=== PATIENT | female | born 1950 | race Caucasian/White ===

== ENCOUNTER → 2017-09-10 07:47 | Outpatient (CLI) | payer MEDICARE, OTHER, SELFPAY ==
--- NOTE | 2017-09-10 | DI.MG.S_ITS ---
BILATERAL DIGITAL SCREENING MAMMOGRAM 3D/2D WITH CAD: 09/10/2017 CLINICAL: Routine screening. Family history of breast cancer. Comparison is made to exams dated: 08/25/2016 mammogram, 07/04/2015 mammogram, and 03/12/2014 mammogram - [facility]. The tissue of both breasts is heterogeneously dense. This may lower the sensitivity of mammography. Current study was also evaluated with a Computer Aided Detection (CAD) system. No significant masses, calcifications, or other findings are seen in either breast. There has been no significant interval change. IMPRESSION: NEGATIVE There is no mammographic evidence of malignancy. A 1 year screening mammogram is recommended. This exam was interpreted at Station ID: [id number]. NOTE: For mammograms, a report in lay terms will be sent to the patient. Approximately 15% of breast malignancies will not be visualized mammographically. In the management of a palpable breast mass, a negative mammogram must not discourage biopsy of a clinically suspicious lesion. Electronically Signed By: Ana Maria escobedo/britta:09/13/2017 09:33:08 letter sent: Normal Exam ACR BI-RADS Category 1: Negative [id number]
== END ==
PROVIDERS: Visit Provider Nurse Practitioner Family
DX: Z12.31 Encounter for screening mammogram for malignant neoplasm of breast (principal); Z80.3 Family history of malignant neoplasm of breast
CPT/HCPCS: 77063; 77067

== ENCOUNTER → 2018-04-24 09:40 | Outpatient (CLI) | payer MEDICARE, OTHER, SELFPAY ==
--- NOTE | 2018-04-24 | DI.RAD.S_ITS ---
This blank DEXA report has been sent in error by the PACS system. The correct and complete report will be forthcoming in 1-2 days. Thank you for your patience and understanding. Dictated by: Monty Ramos M.D. on 04/24/2018 at 12:22 Approved by: Monty Ramos M.D. on 04/24/2018 at 12:23
== END ==
PROVIDERS: Visit Provider Internal Medicine
DX: M85.88 Other specified disorders of bone density and structure, other site (principal); Z78.0 Asymptomatic menopausal state; E07.9 Disorder of thyroid, unspecified
CPT/HCPCS: 77080

== ENCOUNTER 2018-04-26 11:59 | Day surgery (SDC) | payer MEDICARE, OTHER, SELFPAY ==
--- NOTE | 2018-04-26 | PATH_ITS ---
[facility] Accession Number: [id number] . 01 Material submitted: . GE JUNCTION . 01 Clinical history: . A: BARRETTS ESOPHAGUS BIOPSY GE JUNCTION . 02 Diagnosis: Gastroesophageal Junction, Biopsy: Squamocolumnar junctional mucosa with specialized intestinal metaplasia, consistent with Keating's esophagus. Negative for dysplasia and malignancy. MRV/04/28/2018 . 02 Electronically signed: . Bianca Fernandez MD, Pathologist NPI- [id number] . 01 Gross description: . GE JUNCTION: Received in formalin are multiple fragment(s) of oliveira, soft tissue measuring 0.5 x 0.2 x 0.2 cm in aggregate submitted entirely in 1 cassette(s) /CKI /CKI . 02 Pathologist provided ICD-10: K22.70 . 02 CPT . 791979 Performed at: 01 [facility] [address], [place], [place] [id number] MD Victor Hugo Rodriguez MD Phone: [phone] Performed at: 02 [facility] [address] [place], [place] [id number] MD Bianca Fernandez MD Phone: [phone]
[2018-04-26 13:22] VITALS: BP 128/83; PULSE 73; RESP 16; TEMP 36.2; O2SAT 95; BMI 29.0
[2018-04-26] MEDS: SODIUM CHLORIDE 0.9% 1,000 ML 100 ML IV ×2 (13:35→16:45)
[2018-04-26 15:37] VITALS: BP 131/89; PULSE 71; RESP 16; O2SAT 131
--- NOTE | 2018-04-26 16:31 | PM.HP.1 ---
History of Present Illness Date Patient Seen: 04/26/18 Time Patient Seen: 16:30 Chief complaint: 39571 EGD W/DX K22.7 Narrative: history GERD and Keating's esophagus Patient History Medical History Snoring (Chronic) Insomnia, persistent (Chronic) Hypersomnia (Chronic) Obstructive sleep apnea of adult (Chronic) Family & Social History Social History: household members none Tobacco & Substance use: Smoking Status Never smoker Meds Home Medications Medication Instructions Recorded Confirmed Type AMINOBENZOIC ACID/BIOTIN/CA (#B 1 cap PO PRN #0 06/25/11 12/01/17 History COMPLEX) Calcium Carbonate/Vitamin D 1 cap PO PRN #0 06/25/11 12/01/17 History (#CALCIUM) MULTIVITAMIN (#MULTIPLE VITAMINS) 1 cap PO PRN #0 06/25/11 12/01/17 History OMEPRAZOLE 20 mg PO QDAY #0 06/25/11 04/26/18 History [VITAMIN C] 500 mg PO PRN #0 06/25/11 12/01/17 History [VITAMIN D] 2,000 iu PO QDAY #0 06/25/11 12/01/17 History thyroid (pork) [[place] Thyroid] 60 mg PO DAILY 04/26/18 04/26/18 History Allergies Allergy/AdvReac Type Severity Reaction Status Date / Time No Known Drug Allergies Allergy Unverified 12/01/17 13:42 Review of Systems Review of Systems All systems reviewed & are unremarkable except as noted in HPI and below Exam Vital Signs (past 8 hours): - 04/26/18 13:22 Temperature 97.1 F L Pulse Rate 73 Respiratory Rate 16 Blood Pressure 128/83 Pulse Oximetry 95 Oxygen Delivery Method Room Air Narrative Exam Narrative: gen aaox3, and heent anicteric cv rrr, no murmurs pulm ctab abd s, nt, nd, nabs ext 2+ pulses, no edema Assessment & Plan Plan: Assessment/Plan Narrative: GERD, Keating's esophagus EGD
[2018-04-26] MEDS: MIDAZOLAM 5 MG/5 ML VIAL IV (16:46)
[2018-04-26] MEDS: fentaNYL 250 MCG/5 ML INJ IV (16:47)
[2018-04-26 16:55] VITALS: BP 123/78; PULSE 80; RESP 13; TEMP 36.2
[2018-04-26 17:02] VITALS: BP 130/81; PULSE 83; RESP 13; O2SAT 94
--- NOTE | 2018-04-26 17:02 | P.OP.ENDO_ITS ---
Operative Date/Time/Diagnoses Date of procedure: 04/26/18 Time of procedure: 16:38 Procedure & Clinicians Study performed: EGD with biopsy Same procedure as scheduled: Yes Indications: History of Keating's esophagus, GERD Surgeon: Ilan Mejia Procedure Notes Procedure in detail: Sedation: 5 mg Versed, 150 mcg fentanyl Prior to the procedure, a history and physical was performed, and patient medications and allergies were reviewed. Preprocedure nursing history and assessment was reviewed. Patient identification and proposed procedure were verified by the physician and nurse in the procedure room. The physical status of the patient was reassessed after the procedure. After informed consent was obtained including the risks, benefits, and alternatives, the scope was passed under direct vision. Throughout the procedure, the patient's blood pressure, pulse, and oxygen saturation were monitored continuously. The upper endoscope was introduced through the mouth and advanced to the 2nd portion of the duodenum. Retroflexion was performed in the stomach. The patient tolerated the procedure well Esophagus: Four columns of salmon colored mucosa extending up to 2 cm above the gastroesophageal junction were noted, consistent with a history of Keating's esophagus graded as C0M2 based on [place] classification. This was biopsied and placed into a single specimen jar. Top of intestinal metaplasia located at 34 cm from the incisors. Top of gastric folds located at 36 cm from the incisors. Stomach: A 4 cm hiatal hernia was noted. Crural pinch located at 40 cm The stomach was otherwise normal appearing Duodenum: The examined portion of the duodenum was normal appearing Sedation minutes: 11 Findings: Keating's esophagus and hiatal hernia Complications: other (Complications none. Estimated blood loss minimal) Plan for aftercare: Follow-up pathology results Repeat EGD at a date to be determined based on pathology results Resume home medications Follow anti-reflux diet and lifestyle Discharged home with escort
[2018-04-26 17:06] VITALS: BP 130/84; PULSE 88; RESP 14; TEMP 36.2; O2SAT 96
== END 2018-04-26 17:25 | disposition home or self-care (01) ==
PROVIDERS: Visit Provider Internal Medicine
PROC: 0DJ08ZZ Inspection of Upper Intestinal Tract, Via Natural or Artificial Opening Endoscopic (ICD-10-PCS; CPT 43235; principal; 2018-04-26 16:00)
DX: K22.70 Barrett's esophagus without dysplasia (principal); K21.9 Gastro-esophageal reflux disease without esophagitis; K44.9 Diaphragmatic hernia without obstruction or gangrene; G47.33 Obstructive sleep apnea (adult) (pediatric)
CPT/HCPCS: 43239; 88305; J2250; J3010

== ENCOUNTER → 2018-08-17 07:44 | Outpatient (CLI) | payer MEDICARE, OTHER, SELFPAY ==
--- NOTE | 2018-08-17 | DI.US.S_ITS ---
PROCEDURE: US THYROID INDICATIONS: NONTOXIC SINGLE THYROID NODULE TECHNIQUE: Real-time scanning was performed of the thyroid gland, with image documentation. COMPARISON: [facility], US, THYROID, 06/24/2014, 8:36. FINDINGS: Right: Thyroid lobe measures 5.4 x 1.7 x 1.7 cm, and is homogeneous in echotexture. Left: Thyroid lobe measures 5.0 1.4 x 1.6 cm, and is homogenous in echotexture. Isthmus: 4 mm thick. Nodule number: 1 Location: Right upper pole Size: 1.4 x 0.8 x 1.1 cm. Composition: Predominant solid Echogenicity: Hypoechoic Shape: wider than tall. Margins: Smooth Echogenic foci: None Total points: 4 ACR TI-RADS category: 4 Nodule number: 2 Location: Right lower pole Size: 1.0 x 0.6 x 1.0 cm. Composition: Predominantly solid Echogenicity: Isoechoic Shape: wider than tall. Margins: Smooth Echogenic foci: None Total points: 3 ACR TI-RADS category: 3 Nodule number: 3 Location: Left upper pole Size: 0.6 x 0.4 x 0.6 cm. Composition: Predominantly solid Echogenicity: Isoechoic Shape: wider than tall. Margins: Smooth Echogenic foci: None Total points: 3 ACR TI-RADS category: 3 Nodule number: 4 Location: Left lower pole Size: 1.1 x 0.8 x 0.7 cm. Composition: Solid Echogenicity: Isoechoic Shape: wider than tall. Margins: Lobulated Echogenic foci: None Total points: 5 ACR TI-RADS category: 4 IMPRESSION: Multiple thyroid nodules which warrant continued followup with ultrasound surveillance in 12 months per consensus recommendations. ACR TI-RADS definitions and recommendations: TI-RADS 1 (benign): 0 points. FNA not needed. TI-RADS 2 (not suspicious): 2 points. FNA not needed. TI-RADS 3 (mildly suspicious): 3 points. * FNA if 2.5 cm or larger, follow up if 1.5 cm or larger (at 1, 3, and 5 years). TI-RADS 4 (moderately suspicious): 4-6 points. * FNA if 1.5 cm or larger, follow up if 1 cm or larger (at 1, 2, 3, and 5 years). TI-RADS 5 (highly suspicious): 7 points or more. * FNA if 1 cm or larger, follow up if 0.5 cm or larger (every year for 5 years). * Dictated by: Miguel Angel Ramirez M.D. on 08/17/2018 at 9:17 Approved by: Miguel Angel Ramirez M.D. on 08/17/2018 at 9:44
[2018-08-17 10:10] LABS: Free T4, Direct Thyroxine 1.01 ng/dL (0.78-2.19)
[2018-08-17 10:23] LABS: Thyroid Stimulating Hormone 1.53 uIU/mL (0.47-4.68)
[2018-08-18 16:42] LABS: Triiodothyronine T3 Total 83 ng/dL (76-181)
== END ==
PROVIDERS: PCP Internal Medicine; Visit Provider Internal Medicine
DX: E04.2 Nontoxic multinodular goiter (principal); E03.9 Hypothyroidism, unspecified
CPT/HCPCS: 36415; 76536; 84439; 84443; 84480

== ENCOUNTER → 2018-10-10 07:59 | Outpatient (CLI) | payer MEDICARE, OTHER, SELFPAY ==
[2018-10-10 08:42] LABS: Add Manual Diff / Slide Review NO; Basophils Absolute Auto 0 /uL (0-100); Basophils Percent Auto 0.9 % (0-2); Eosinophils Absolute Auto 200 /uL (0-450); Hematocrit 40.9 % (36-46); Hemoglobin 13.5 g/dL (12.0-16.0); Lymphocytes Absolute Auto 1700 /uL (1100-4500); Lymphocytes Percent Auto 33.4 % (25-40); Mean Corpuscular Hemoglobin 29.4 PG (26-34); Mean Corpuscular Volume 89.1 fL (80-100); Monocytes Absolute Auto 500 /uL (0-900); Monocytes Percent Auto 10.1 % (3-14); Neutrophils Absolute Auto 2700 /uL (1500-7000); Neutrophils Percent Auto 52.6 % (50-75); Platelet Count 337 X10^3/uL (150-400); Red Blood Cell Count 4.59 X10^6/uL (4.0-5.2); Red Cell Distribution Width 14.3 % (11.6-14.8); White Blood Cell Count 5.1 X10^3/uL (4.5-11.0)
[2018-10-10 08:56] LABS: Alanine Aminotransferase 13 IU/L (9-52); Albumin 4.2 g/dL (3.5-5.0); Albumin Globulin Ratio 1.4 (1.0-2.8); Alkaline Phosphatase 66 U/L (38-126); Aspartate Aminotransferase 22 IU/L (14-36); BUN Creatinine Ratio 25.6 (6-22); Bilirubin Total 0.9 mg/dL (0.2-1.3); Blood Urea Nitrogen 23 mg/dL (7-17); Calcium 9.4 mg/dL (8.4-10.2); Carbon Dioxide 27 mmol/L (22-32); Chloride 106 mmol/L (98-107); Cholesterol 208 mg/dL (140-199); Estimated Glomerular Filt Rate > 60.0 mL/min (>60); Globulin 2.9 g/dL (1.7-4.1); Glucose 89 mg/dL (80-110); HDL Cholesterol 91 mg/dL (40-60); HEMOLYSIS < 15 (0-50); LDL Cholesterol Calculated 106 mg/dL (<100); Magnesium 1.9 mg/dL (1.6-2.3); Potassium 4.3 mmol/L (3.4-5.1); Sodium 141 mmol/L (137-145); Total Protein 7.1 g/dL (6.3-8.2); Triglycerides 56 mg/dL (35-150)
[2018-10-10 09:41] LABS: Vitamin D 25 Hydroxy (D3) 39.4 ng/mL (30.0-100.0)
== END ==
PROVIDERS: PCP Internal Medicine; Visit Provider Internal Medicine
DX: M89.9 Disorder of bone, unspecified (principal); Z13.220 Encounter for screening for lipoid disorders
CPT/HCPCS: 36415; 80053; 80061; 82306; 83735; 85025

== ENCOUNTER → 2018-10-14 08:54 | Outpatient (CLI) | payer MEDICARE, OTHER, SELFPAY ==
--- NOTE | 2018-10-14 | DI.MG.S_ITS ---
BILATERAL DIGITAL SCREENING MAMMOGRAM 3D/2D WITH CAD: 10/14/2018 CLINICAL: Routine screening. Family history of breast cancer. Comparison is made to exams dated: 09/10/2017 mammogram, 08/25/2016 mammogram, and 07/04/2015 mammogram - [facility]. The tissue of both breasts is heterogeneously dense. This may lower the sensitivity of mammography. Current study was also evaluated with a Computer Aided Detection (CAD) system. No significant masses, calcifications, or other findings are seen in either breast. There has been no significant interval change. IMPRESSION: NEGATIVE There is no mammographic evidence of malignancy. A 1 year screening mammogram is recommended. This exam was interpreted at Station ID: [id number]. NOTE: For mammograms, a report in lay terms will be sent to the patient. Approximately 15% of breast malignancies will not be visualized mammographically. In the management of a palpable breast mass, a negative mammogram must not discourage biopsy of a clinically suspicious lesion. Electronically Signed By: Victor Hugo velasquez/britta:10/16/2018 10:33:39 letter sent: Normal Exam ACR BI-RADS Category 1: Negative [id number]
== END ==
PROVIDERS: PCP Internal Medicine; Visit Provider Internal Medicine
DX: Z12.31 Encounter for screening mammogram for malignant neoplasm of breast (principal); Z80.3 Family history of malignant neoplasm of breast
CPT/HCPCS: 77063; 77067

== ENCOUNTER → 2019-01-08 14:46 | Outpatient (CLI) | payer MEDICARE, OTHER, SELFPAY ==
[2019-01-08 16:58] LABS: Free T4, Direct Thyroxine 1.01 ng/dL (0.78-2.19)
[2019-01-08 17:12] LABS: Thyroid Stimulating Hormone 0.84 uIU/mL (0.47-4.68)
[2019-01-10 15:34] LABS: Triiodothyronine T3 Total 104 ng/dL (76-181)
== END ==
PROVIDERS: PCP Internal Medicine; Visit Provider Internal Medicine
DX: E03.9 Hypothyroidism, unspecified (principal)
CPT/HCPCS: 36415; 84439; 84443; 84480

== ENCOUNTER → 2019-04-19 13:38 | Outpatient (CLI) | payer MEDICARE, OTHER, SELFPAY | PROVIDERS: PCP Internal Medicine; Visit Provider Internal Medicine | DX: M85.88 Other specified disorders of bone density and structure, other site (principal); Z78.0 Asymptomatic menopausal state; E07.9 Disorder of thyroid, unspecified; K92.9 Disease of digestive system, unspecified | CPT/HCPCS: 77080 ==

== ENCOUNTER → 2019-11-23 07:34 | Outpatient (CLI) | payer MEDICARE, OTHER, SELFPAY ==
[2019-11-23 08:48] LABS: Alanine Aminotransferase 13 IU/L (<35); Albumin 4.1 g/dL (3.5-5.0); Albumin Globulin Ratio 1.6 (1.0-2.8); Alkaline Phosphatase 67 U/L (38-126); Aspartate Aminotransferase 20 IU/L (14-36); BUN Creatinine Ratio 19.3 (6-22); Bilirubin Total 0.8 mg/dL (0.2-1.3); Blood Urea Nitrogen 16 mg/dL (7-17); Calcium 9.5 mg/dL (8.4-10.2); Carbon Dioxide 23 mmol/L (22-32); Chloride 107 mmol/L (98-107); Cholesterol 220 mg/dL (140-199); Estimated Glomerular Filt Rate > 60.0 mL/min (>60); Globulin 2.5 g/dL (1.7-4.1); Glucose 94 mg/dL (80-110); HDL Cholesterol 95 mg/dL (40-60); HEMOLYSIS < 15 (0-50); LDL Cholesterol Calculated 107 mg/dL (<100); Potassium 4.3 mmol/L (3.4-5.1); Sodium 136 mmol/L (137-145); Total Protein 6.6 g/dL (6.3-8.2); Triglycerides 90 mg/dL (35-150)
[2019-11-23 09:16] LABS: Thyroid Stimulating Hormone 0.557 uIU/mL (0.47-4.68)
== END ==
PROVIDERS: PCP Registered Nurse; Referring Provider Registered Nurse; Visit Provider Registered Nurse
DX: E78.5 Hyperlipidemia, unspecified (principal); E07.9 Disorder of thyroid, unspecified
CPT/HCPCS: 36415; 80053; 80061; 84443

== ENCOUNTER → 2019-11-27 09:44 | Outpatient (CLI) | payer MEDICARE, OTHER, SELFPAY ==
--- NOTE | 2019-11-27 09:46 | DI.US.S_ITS ---
PROCEDURE: US THYROID INDICATIONS: disorder of thyroid TECHNIQUE: Real-time scanning was performed of the thyroid gland, with image documentation. COMPARISON: [facility], US, US THYROID, 08/17/2018, 8:04. FINDINGS: Right: Thyroid lobe measures 5.1 x 1.7 x 2.2 cm, and is homogeneous in echotexture. Left: Thyroid lobe measures 5.0 x 1.3 x 1.7 cm, and is homogenous in echotexture. Isthmus: 3 mm thick. Nodule number: 1 Location: Right superior Size: 1.3 x 0.8 x 1.2 cm. Composition: Predominantly solid Echogenicity: Hypoechoic Shape: Wider than tall Margins: Smooth Echogenic foci: None Total points: 4 ACR TI-RADS category: 4 Nodule number: 2 Location: Right lower Size: 0.8 x 0.6 x 1.0 cm. Composition: Predominantly solid Echogenicity: Isoechoic Shape: Wider than tall Margins: Lobulated Echogenic foci: Punctate Total points: 8 ACR TI-RADS category: 5 Nodule number: 3 Location: Left upper Size: 0.7 x 0.5 x 0.7 cm. Composition: Predominantly solid Echogenicity: Isoechoic Shape: Wider than tall Margins: Smooth Echogenic foci: None Total points: 3 ACR TI-RADS category: 3 Nodule number: 4 Location: Left lower Size: 1.1 x 0.8 x 0.8 cm. Composition: Solid Echogenicity: Isoechoic Shape: Wider than tall Margins: Lobulated Echogenic foci: Peripheral calcification Total points: 7 ACR TI-RADS category: 5 IMPRESSION: 1. Nodule 2 and nodule 4 have highly suspicious imaging characteristics (TI-RADS 5) and are larger 1 centimeter in diameter. Ultrasound-guided fine needle aspiration of the nodules should be performed for further evaluation. 2. Nodule 1 and nodule 3 are unchanged compared to prior examinations. Recommend continued annual re-evaluation. ACR TI-RADS definitions and recommendations: TI-RADS 1 (benign): 0 points. FNA not needed. TI-RADS 2 (not suspicious): 2 points. FNA not needed. TI-RADS 3 (mildly suspicious): 3 points. * FNA if 2.5 cm or larger, follow up if 1.5 cm or larger (at 1, 3, and 5 years). TI-RADS 4 (moderately suspicious): 4-6 points. * FNA if 1.5 cm or larger, follow up if 1 cm or larger (at 1, 2, 3, and 5 years). TI-RADS 5 (highly suspicious): 7 points or more. * FNA if 1 cm or larger, follow up if 0.5 cm or larger (every year for 5 years). Dictated by: Vita James MD, PhD on 11/27/2019 at 17:25 Approved by: Vita James MD, PhD on 11/28/2019 at 16:28
== END ==
PROVIDERS: PCP Registered Nurse; Referring Provider Registered Nurse; Visit Provider Registered Nurse
DX: E04.2 Nontoxic multinodular goiter (principal)
CPT/HCPCS: 76536

== ENCOUNTER → 2019-12-11 10:53 | Outpatient (CLI) | payer MEDICARE, OTHER, SELFPAY ==
--- NOTE | 2019-12-11 | DI.MG.S_ITS ---
BILATERAL DIGITAL SCREENING MAMMOGRAM 3D/2D WITH CAD: 12/11/2019 CLINICAL: Routine screening. Family history of breast cancer. Comparison is made to exams dated: 10/14/2018 mammogram, 09/10/2017 mammogram, and 08/25/2016 mammogram - [facility]. The tissue of both breasts is heterogeneously dense. This may lower the sensitivity of mammography. Current study was also evaluated with a Computer Aided Detection (CAD) system. No significant masses, calcifications, or other findings are seen in either breast. There has been no significant interval change. IMPRESSION: NEGATIVE There is no mammographic evidence of malignancy. A 1 year screening mammogram is recommended. This exam was interpreted at Station ID: [id number]. NOTE: For mammograms, a report in lay terms will be sent to the patient. Approximately 15% of breast malignancies will not be visualized mammographically. In the management of a palpable breast mass, a negative mammogram must not discourage biopsy of a clinically suspicious lesion. Electronically Signed By: Dami oliver/britta:12/11/2019 11:34:45 letter sent: Normal Exam ACR BI-RADS Category 1: Negative 3341F
== END ==
PROVIDERS: PCP Registered Nurse; Referring Provider Registered Nurse; Visit Provider Registered Nurse
DX: Z12.31 Encounter for screening mammogram for malignant neoplasm of breast (principal); Z80.3 Family history of malignant neoplasm of breast
CPT/HCPCS: 77063; 77067

== ENCOUNTER → 2019-12-19 07:45 | Outpatient (CLI) | payer MEDICARE, OTHER, SELFPAY ==
--- NOTE | 2019-12-19 | PATH_ITS ---
Note [facility] Accession Number: [id number] TESTS RESULT FLAG UNITS REF RANGE LAB Clinician Provided Cytology Information No. of containers..00 Previously Prepared Cytology Slide 35 Unknown Storage/container code(s) LEFT LOWER THYROID N DIAGNOSIS: 01 LEFT LOWER THYROID NODULE INCONCLUSIVE. BETHESDA CATEGORY III. ATYPIA OF UNDETERMINED SIGNIFICANCE. COMMENT: The specimen is moderately cellular with a mixture of micro- and macrofollicles and colloid. Cytologic atypia is present consisting of nuclear clearing, irregularity and grooves. Pathologist ICD10: 01 R89.6 01 Right: Thyroid lobe measures 5.1 x 1.7 x 2.2 cm, and is homogeneous in echotexture. Left: Thyroid lobe measures 5.0 x 1.3 x 1.7 cm, and is homogenous in echotexture. Isthmus: 3 mm thick. Nodule number: 1 Location: Right superior Size: 1.3 x 0.8 x 1.2 cm. Composition: Predominantly solid Echogenicity: Hypoechoic Shape: Wider than tall Margins: Smooth Echogenic foci: None Total points: 4 ACR T I-RADS category: 4 Nodule number: 2 Location: Right lower Size: 0.8 x 0.6 x 1.0 cm. Composition: Predominantly solid Echogenicity: Isoechoic Shape: Wider than tall Margins: Lobulated Echogenic foci: Punctate Total points: 8 ACR TI-RADS category: 5 Nodule number: 3 Location: Left upper Size: 0.7 x 0.5 x 0.7 cm. Composition: Predominantly solid Echogenicity: Isoechoic Shape: Wider than tall Margins: Smooth Echogenic foci: None Total points: 3 ACR Tl-RADScategory: 3 Nodule number: 4 Location: Left lower Size: 1.1 x 0.8 x 0.8 cm. Composition: Solid Echogenicity: Isoechoic Shape: Wider than tall Margins: Lobulated Echogenic foci: Peripheral calcification Total points: 7 ACR TI-RADS category: 5 IMPRESSION: 1. Nodule 2 and nodule 4 have highly suspicious imaging characteristics (TI-RADS 5) and are larger 1 centimeter in diameter. Ultrasound-guided fine needle aspiration of the nodules should be performed for further evaluation. 2. Nodule 1 and nodule 3 are unchanged compared to prior examinations. Recommend continued annual re-evaluation. Rachna Marin MD, Pathologist NPI- [id number] Balwinder Roy, Money Position Officer ([facility]) 01 30 CC, PINK, CLEAR RECIEVED: IN CYTOLYT WITH 5 ALCOHOL FIXED AND 5 QUICK STAINED SLIDES ALSO 1 RNA VIAL WAS RECEIVED FOR FURTHER TESTING. /[facility] 12/20/2019 0934 Local FLAG LEGEND: L-Low Normal,H-High Normal,LL-Alert Low,HH-Alert High <-Panic Low,>-Panic High,A-Abnormal,AA-Critical Abnormal Performed at: 01 =Z [facility] [address], [place] [address] Victor Hugo Rodriguez MD, Performed at: 01 [facility] [address], [place], [place] [id number] MD Victor Hugo Rodriguez MD Phone: [phone]
--- NOTE | 2019-12-19 | PATH_ITS ---
Note [facility] Accession Number: [id number] TESTS RESULT FLAG UNITS REF RANGE LAB Clinician Provided Cytology Information No. of containers..00 Previously Prepared Cytology Slide 35 Unknown Storage/container code(s) RIGHT LOWER THYROID NODULE DIAGNOSIS: 01 RIGHT LOWER THYROID NODULE, FINE NEEDLE ASPIRATION. NEGATIVE FOR MALIGNANT CELLS. ADEQUATE FOR EVALUATION. COLLOID AND FOLLICULAR GROUPS ARE PRESENT. BENIGN FOLLICULAR (GOITEROUS) NODULE (BETHESDA CATEGORY II), SEE COMMENT. COMMENT: MICROSCOPIC EXAMINATION REVEALS A MILDLY CELLULAR ASPIRATE, COMPOSED OF ABUNDANT COLLOID, FOLLICULAR GROUPS WITH HURTHLE CELL-LIKE CHANGES, WITHOUT SIGNIFICANT CYTOLOGIC OR ARCHITECTURAL ATYPIA, AND BACKGROUND MACROPHAGES. THESE FINDINGS SUPPORT A BENIGN FOLLICULAR (GOITEROUS) NODULE. CORRELATION WITH CLINICAL AND RADIOGRAPHIC FINDINGS IS RECOMMENDED. ACCORDING TO THE BETHESDA REPORTING SYSTEM FOR THYROID CYTOPATHOLOGY, THE RISK OF MALIGNANCY IN THE CATEGORY BENIGN-CATEGORY II IS 0-3%; THEREFORE RECOMMEND CONTINUED ULTRASOUND SURVEILLANCE WITH REPEAT FNA IF THE NODULE SIGNIFICANTLY INCREASES IN SIZE. Pathologist ICD10: 01 E04.2 01 Right: Thyroid lobe measures 5.1 x 1.7 x 2.2 cm, and is homogeneous in echotexture. Left: Thyroid lobe measures 5.0 x 1.3 x 1.7 cm, and is homogenous in echotexture. Isthmus: 3 mm thick. Nodule number: 1 Location: Right superior Size: 1.3 x 0.8 x 1.2 cm. Composition: Predominantly solid Echogenicity: Hypoechoic Shape: Wider than tall Margins: Smooth Echogenic foci: None Total points: 4 ACR T I-RADS category: 4 Nodule number: 2 Location: Right lower Size: 0.8 x 0.6 x 1.0 cm. Composition: Predominantly solid Echogenicity: Isoechoic Shape: Wider than tall Margins: Lobulated Echogenic foci: Punctate Total points: 8 ACR TI-RADS category: 5 Nodule number: 3 Location: Left upper Size: 0.7 x 0.5 x 0.7 cm. Composition: Predominantly solid Echogenicity: Isoechoic Shape: Wider than tall Margins: Smooth Echogenic foci: None Total points: 3 ACR Tl-RADScategory: 3 Nodule number: 4 Location: Left lower Size: 1.1 x 0.8 x 0.8 cm. Composition: Solid Echogenicity: Isoechoic Shape: Wider than tall Margins: Lobulated Echogenic foci: Peripheral calcification Total points: 7 ACR TI-RADS category: 5 IMPRESSION: 1. Nodule 2 and nodule 4 have highly suspicious imaging characteristics (TI-RADS 5) and are larger 1 centimeter in diameter. Ultrasound-guided fine needle aspiration of the nodules should be performed for further evaluation. 2. Nodule 1 and nodule 3 are unchanged compared to prior examinations. Recommend continued annual re-evaluation. 01 Raffi Smyth MD, Pathologist NPI- [id number] 01 Aron Isaacs, [place] ([facility]) 01 30 CC, COLORLESS, CLEAR RECIEVED: IN CYTOLYT WITH 5 ALCOHOL FIXED AND 5 QUICK STAINED SLIDES ALSO 1 RNA VIAL WAS RECEIVED FOR FURTHER TESTING. /[facility] 12/20/2019 0935 Local FLAG LEGEND: L-Low Normal,H-High Normal,LL-Alert Low,HH-Alert High <-Panic Low,>-Panic High,A-Abnormal,AA-Critical Abnormal Performed at: 01 =Z [facility] [address], [place] [address] Victor Hugo Rodriguez MD, Performed at: [address] [facility] [address], [place], [place] [id number] MD Victor Hugo Rodriguez MD Phone: [phone]
--- NOTE | 2019-12-19 07:46 | DI.US.S_ITS ---
PROCEDURE: US FINE NEEDLE ASPIRATION INDICATIONS: TYHROID NODULES, bilateral biopsies performed today. TECHNIQUE: The indications, alternatives, benefits, risks, and complications of the procedure were explained to the patient. Written informed consent was obtained and placed in the chart. The area of interest was examined sonographically and a site was chosen for ultrasound guided percutaneous sampling. The skin was prepared and draped in the usual fashion, and anesthetized with 1% lidocaine infiltrated from the skin down to the lesion. Multiple passes were then performed, with contents emptied into an appropriate pathology specimen container. A bandage was applied to the area of access at completion of the study. COMPARISON: None. FINDINGS: Location(s) of lesion(s) sampled: Lower right thyroid lobe, lower left thyroid lobe. [place]: 25 gauge hypodermic needles. Number of passes: 5 passes at the lower right thyroid lobe, separate procedure with 5 passes into the lower left thyroid lobe nodule. Medications: 1% lidocaine for local anaesthesia. Complications: None. IMPRESSION: Successful ultrasound-guided bilateral fine needle aspiration, with cytology results pending. A total of 5 passes were performed through the 2 separate solid nodules present, for total of 10 separate aspirations. The samples were provided to the clinical laboratory for analysis carefully and clearly labeled. Dictated by: Samuel Barker M.D. on 12/19/2019 at 16:31 Approved by: Samuel Barker M.D. on 12/19/2019 at 16:33
== END ==
PROVIDERS: PCP Registered Nurse; Referring Provider Registered Nurse; Visit Provider Registered Nurse
DX: E04.2 Nontoxic multinodular goiter (principal)
CPT/HCPCS: 10005; 10006

== ENCOUNTER 2020-09-11 15:29 | Emergency (ER) | payer MEDICARE, OTHER, SELFPAY ==
[2020-09-11 15:36] VITALS: BP 131/80; PULSE 93; RESP 14; TEMP 37.2; O2SAT 97; BMI 31.3
--- NOTE | 2020-09-11 17:18 | DI.US.S_ITS ---
PROCEDURE: US EXTREMITY NONVASC LOWER RT INDICATIONS: hx dvt. swelling/redness above right knee TECHNIQUE: Real-time scanning was performed of the right lower extremity, with image documentation. COMPARISON: None. FINDINGS: Ultrasound of an area of redness corresponds to thrombosed superficial varicosities in the distal thigh. There also varicose veins at the knee which are compressible. IMPRESSION: 1. Area of redness corresponds to superficial thrombosis, involving varicosities in the distal anterior thigh. Dictated by: Godwin Azar M.D. on 09/11/2020 at 19:06 Approved by: Godwin Azar M.D. on 09/11/2020 at 19:08
--- NOTE | 2020-09-11 18:08 | ED.EXTPRO ---
HPI - Extremity Problem General Chief complaint: Extremity Problem,Nontraumatic Stated complaint: sent for possible blood clot Time Seen by Provider: 09/11/20 17:16 Source: patient Mode of arrival: Ambulatory Limitations: no limitations History of Present Illness HPI Narrative: 70F nonsmoker with extensive history of varicosities in LE with a chief complaint of some pain, redness and swelling on her right knee over the past few days in the absence of any injury. She denies any recent travel, injury, chest pain or shortness of breath. She has had no fever or chills. She does have a painful red bump on her proximal lateral knee that seems to be worse when she is up and about and when she presses on it but is otherwise well and free of complaint. She denies any calf pain or swollen extremity, she denies any medial thigh discomfort. MD Complaint: extremity pain Onset (ago): day(s) Pain Consistency: constant Location: right Quality: burning Radiation: none Associated symptoms: denies other symptoms Related Data Home Medications Medication Instructions Recorded Confirmed AMINOBENZOIC ACID/BIOTIN/CA (#B 1 cap PO PRN #0 06/25/11 09/11/20 COMPLEX) MULTIVITAMIN (#MULTIPLE VITAMINS) 1 cap PO PRN #0 06/25/11 09/11/20 [VITAMIN C] 500 mg PO PRN #0 06/25/11 09/11/20 [VITAMIN D] 2,000 iu PO QDAY #0 06/25/11 09/11/20 Respironics Remstar CPAP #1 ea 12/20/18 09/11/20 Melatonin 1 tab PO DAILY 11/20/19 09/11/20 calcium carbonate 200 mg calcium 200 mg PO BID-TID tab 11/20/19 09/11/20 (500 mg) chewable tablet doxylamine succinate 25 mg tablet 25 mg PO BEDTIME 11/20/19 09/11/20 famotidine 20 mg tablet 20 mg PO DAILY PRN 11/20/19 09/11/20 magnesium oxide 500 mg capsule 500 mg PO DAILY PRN 11/20/19 09/11/20 omeprazole 20 mg capsule,delayed 20 mg PO DAILY cap 11/20/19 09/11/20 release Previous Rx's Medication Instructions Recorded levothyroxine 75 mcg capsule 75 mcg PO DAILY #30 cap 01/07/20 Allergies Allergy/AdvReac Type Severity Reaction Status Date / Time No Known Drug Allergies Allergy Verified 09/11/20 15:38 Review of Systems Constitutional Constitutional: Denies chills, Denies fatigue, Denies fever(s), Denies frequent falls, Denies lethargy and Denies weakness Eyes Eyes: Denies change in vision, Denies eye discharge, Denies irritation and Denies loss of vision ENT Ears, Nose, Mouth, and Throat: Denies change in voice, Denies dizziness, Denies neck pain, Denies sore throat and Denies throat swelling Cardiovascular Cardiovascular: Denies chest pain, Denies irregular heart rhythm, Denies lightheadedness, Denies palpitations, Denies dyspnea, Denies dyspnea on exertion and Denies orthopnea Respiratory Respiratory: Denies cough, Denies dyspnea, Denies dyspnea on exertion and Denies wheezing Gastrointestinal Gastrointestinal: Denies abdominal pain, Denies change in bowel habits, Denies diarrhea, Denies nausea and Denies vomiting Musculoskeletal Musculoskeletal: Denies neck pain and Denies numbness Integumentary/Breasts Skin/Breast: Denies pruritus, Reports erythema, Denies rash, Reports skin pain, Reports skin swelling and Denies wounds Neurologic Neurologic: Denies behavioral changes, Denies confusion, Denies dizziness, Denies frequent falls, Denies loss of vision, Denies numbness and Denies weakness Psychiatric Psychiatric: Denies anxiety, Denies behavioral changes, Denies confusion, Denies depression, Denies homicidal ideation and Denies suicidal ideation Endocrine Endocrine: Denies fatigue, Denies flushing and Denies palpitations Hematologic/Lymphatic Hematologic/Lymphatic: Denies easy bruising Allergic/Immunologic Allergic/Immunologic: Denies urticaria, Denies throat swelling and Denies wheezing Patient History Medical History Hypersomnia Insomnia, persistent Obstructive sleep apnea of adult Snoring Social History marital status: details: lives in [place] household members: none lives independently: Yes caregiver/support person: No housing: house occupational status: employed other: self-employed Smoking Status: Never smoker substance use type: does not use Smoking Status: Never smoker alcohol intake frequency: holidays/special occasions only Substance Use Type: does not use Exam Narrative Exam Narrative: GEN: AOx3 and in mild distress EYES: Pupils are equal, round, and reactive to light and accommodation. Extraoccular muscles are intact bilaterally. There is no subconjunctival hemorrhage or exudate. CHEST: Lungs are clear to auscultation bilaterally and free of wheezes, rales, or rhonchi. Heart rate is regular rhythm, there are no murmurs, clicks, rubs, or gallops. There is no chest wall tenderness. ABD: Abdomen is soft and nontender. There is no guarding or rebound. Bowel sounds are normal in all 4 quadrants. There is no mass or organomegaly. EXT: Full painless ROM of all extremities with no loss of sensation or strength. SKIN: Erythematous, slightly warm, palpable, rope-like structure in right proximal lateral knee extending a few cm. Warm, pink, and dry. No erythema or rash Initial Vital Signs Initial Vital Signs: Vital Signs Temperature 98.9 F 09/11/20 15:36 Pulse Rate 93 H 09/11/20 15:36 Respiratory Rate 14 09/11/20 15:36 Blood Pressure 131/80 09/11/20 15:36 Pulse Oximetry 97 09/11/20 15:36 Course Orders Ordered: ED Orders 09/11/20 17:18 US extremity nonvasc lower rt Stat Vital Signs Vital signs: Vital Signs - 8 hr 09/11/20 15:36 09/11/20 20:04 Temperature 98.9 F Pulse Rate 93 H 79 Respiratory Rate 14 14 Blood Pressure 131/80 125/76 Pulse Oximetry 97 95 MDM - Extremity (Nontraumatic) Imaging Data US - DVT: Radiologist's Impression: [address] [id number] ReportSigned Patient: Layla Rincon [facility]#: [id number]: 1950cct:[id number]/Sex: 70 / FDate of Service: 09/11/20Loc: EDAccession Number: [id number] Procedure: US extremity nonvasc lower rt Ordering Provider: Nicko Lofton D.O. PROCEDURE: US EXTREMITY NONVASC LOWER RT INDICATIONS: hx dvt. swelling/redness above right knee TECHNIQUE: Real-time scanning was performed of the right lower extremity, with image documentation. COMPARISON: None. FINDINGS: Ultrasound of an area of redness corresponds to thrombosed superficial varicosities in the distal thigh. There also varicose veins at the knee which are compressible. IMPRESSION: 1. Area of redness corresponds to superficial thrombosis, involving varicosities in the distal anterior thigh. Dictated by: Godwin Azar M.D. on 09/11/2020 at 19:06 Approved by: Godwin Azar M.D. on 09/11/2020 at 19:08 [facility] Narrative Medical decision making narrative: Multiple etiologies for patient's symptoms considered including: [Deep vein thrombosis versus superficial thrombophlebitis versus cellulitis versus other] Ultrasound is most consistent with superficial thrombophlebitis. Physical exam is consistent this. We did discuss other options but thought they were less likely given her history, physical and ultrasound. Findings and discharge diagnosis discussed with patient/family followed by verbalization of understanding Return precautions discussed with patient/family whom verbalize understanding. Discharge Plan Departure Patient Disposition: Home Clinical Impression: Superficial thrombophlebitis Qualifiers: Superficial thrombophlebitis-Involved body area: lower extremity Laterality: right Qualified Code(s): I80.01 - Phlebitis and thrombophlebitis of superficial vessels of right lower extremity Instructions: DI for Superficial Thrombophlebitis Activity Restrictions/Additional Instructions: *You have been diagnosed with [right lower extremity superficial thrombophlebitis (ultrasound does not demonstrate a deep clot) *What to do: *Please continue to take your regular medications as directed. [ ] New medication prescriptions sent to your pharmacy: [ ] [ ] New medication written as a paper prescription [x ] Please consider taking Aspirin 81mg dailiy at least until follow up with your doctor *Please follow up with your primary care provider in 2-3 days, call for an appointment. Let them know you were seen in the Emergency Department and that we ask that you be seen in follow up. We will electronically transmit a record of today's note if your PCP is in our system *If you do not have a primary care provider please contact the [facility] Resource line at [phone]. They will ask some questions about your medical history and help get you set up with a doctor in the community. *Return to Emergency Department if you should have any new, worsening or concerning symptoms, such as [fever greater than 101 F, shaking chills, worsening pain, persistent vomiting or other bothersome symptoms] Prescriptions: No Action AMINOBENZOIC ACID/BIOTIN/CA (#B COMPLEX) 1 cap PO PRN Qty: 0 RF: 0 MULTIVITAMIN (#MULTIPLE VITAMINS) 1 cap PO PRN Qty: 0 RF: 0 [VITAMIN D] 2,000 iu PO QDAY Qty: 0 RF: 0 [VITAMIN C] 500 mg PO PRN Qty: 0 RF: 0 levothyroxine 75 mcg capsule 75 mcg PO DAILY Qty: 30 RF: 2 omeprazole 20 mg capsule,delayed release(DR/EC) 20 mg PO DAILY RF: 0 famotidine 20 mg tablet 20 mg PO DAILY PRNRF: 0 calcium carbonate [Tums] 200 mg calcium (500 mg) tablet,chewable 200 mg PO BID-TID RF: 0 Sleep Aid (doxylamine) 25 mg tablet 25 mg PO BEDTIME RF: 0 Melatonin 1 tab PO DAILY RF: 0 magnesium oxide 500 mg capsule 500 mg PO DAILY PRNRF: 0 (DME) Respironics Remstar CPAP Qty: 1 RF: 0 Referrals: Dm Merino ARNP [Primary Care Provider] -
[2020-09-11 20:04] VITALS: BP 125/76; PULSE 79; RESP 14; O2SAT 95
== END 2020-09-11 20:06 | disposition home or self-care (01) ==
PROVIDERS: Emergency Provider Emergency Medicine; PCP Registered Nurse
DX: I80.01 Phlebitis and thrombophlebitis of superficial vessels of right lower extremity (principal)
CPT/HCPCS: 76882; 99283

== ENCOUNTER → 2020-09-22 10:47 | Outpatient (CLI) | payer MEDICARE, OTHER, SELFPAY ==
--- NOTE | 2020-09-22 10:50 | DI.US.S_ITS ---
PROCEDURE: US PERIPH VENOUS LOW EXTREM RT INDICATIONS: superficial thrombophlebitis TECHNIQUE: Real-time imaging, as well as color and pulse Doppler interrogation, were performed of the lower extremity deep veins from the inguinal ligament to the popliteal fossa. COMPARISON: None. FINDINGS: The common femoral, femoral and popliteal veins are normally compressible, and free of intraluminal thrombus. Color and pulse Doppler demonstrate normal phasic intraluminal flow. There is normal augmentation response to distal compression maneuver. Anterior and lateral to the knee, superficial varicose veins are seen with incompressibility, lack of color flow, and thrombus on grayscale images. Findings are consistent with superficial thrombophlebitis. IMPRESSION: 1. No sonographic evidence of deep venous thrombosis in the right lower extremity. 2. Superficial thrombophlebitis involving subcutaneous varicose veins adjacent to the knee. Dictated by: Dami García M.D. on 09/22/2020 at 11:45 Approved by: Dami García M.D. on 09/22/2020 at 11:48
== END ==
PROVIDERS: PCP Registered Nurse; Referring Provider Registered Nurse; Visit Provider Registered Nurse
DX: I80.01 Phlebitis and thrombophlebitis of superficial vessels of right lower extremity (principal)
CPT/HCPCS: 93971

== ENCOUNTER → 2020-10-13 09:41 | Outpatient (CLI) | payer MEDICARE, OTHER, SELFPAY | PROVIDERS: PCP Registered Nurse; Referring Provider Registered Nurse; Visit Provider Registered Nurse | DX: Z78.0 Asymptomatic menopausal state (principal); M85.88 Other specified disorders of bone density and structure, other site; E07.9 Disorder of thyroid, unspecified | CPT/HCPCS: 77080 ==

== ENCOUNTER → 2021-01-10 08:25 | Outpatient (CLI) | payer MEDICARE, OTHER, SELFPAY ==
--- NOTE | 2021-01-10 | DI.MG.S_ITS ---
BILATERAL DIGITAL SCREENING MAMMOGRAM 3D/2D WITH CAD: 01/10/2021 CLINICAL: Routine screening. Family history of breast cancer. Comparison is made to exams dated: 12/11/2019 mammogram, 10/14/2018 mammogram, and 09/10/2017 mammogram - [facility]. The tissue of both breasts is heterogeneously dense. This may lower the sensitivity of mammography. Current study was also evaluated with a Computer Aided Detection (CAD) system. No significant masses, calcifications, or other findings are seen in either breast. There has been no significant interval change. IMPRESSION: NEGATIVE There is no mammographic evidence of malignancy. A 1 year screening mammogram is recommended. This exam was interpreted at Station ID: [id number]. NOTE: For mammograms, a report in lay terms will be sent to the patient. Approximately 15% of breast malignancies will not be visualized mammographically. In the management of a palpable breast mass, a negative mammogram must not discourage biopsy of a clinically suspicious lesion. Electronically Signed By: Victor Hugo velasquez/britta:01/12/2021 07:16:50 letter sent: Normal Exam ACR BI-RADS Category 1: Negative [id number]
== END ==
PROVIDERS: PCP Registered Nurse; Referring Provider Registered Nurse; Visit Provider Registered Nurse
DX: Z12.31 Encounter for screening mammogram for malignant neoplasm of breast (principal); Z80.3 Family history of malignant neoplasm of breast
CPT/HCPCS: 77063; 77067

== ENCOUNTER → 2021-01-16 09:09 | Outpatient (CLI) | payer MEDICARE, OTHER, SELFPAY ==
[2021-01-16 10:33] LABS: COVID19 -Nasal RAPID Negative (Negative)
== END ==
PROVIDERS: PCP Registered Nurse; Visit Provider Surgery
DX: Z20.822 Contact with and (suspected) exposure to COVID-19 (principal); Z01.812 Encounter for preprocedural laboratory examination
CPT/HCPCS: 87635

== ENCOUNTER → 2021-01-16 10:13 | Outpatient (CLI) | payer MEDICARE, OTHER, SELFPAY ==
[2021-01-16 12:10] LABS: Free T3, Triiodothyronine Free 3.23 pg/mL (2.77-5.27)
[2021-01-16 12:20] LABS: Follicle Stimulating Hormone 54.3 mIU/mL; Luteinizing Hormone 17.2 mIU/mL
[2021-01-16 12:24] LABS: TSH w/ Reflex to FT4 1.18 uIU/mL (0.47-4.68)
[2021-01-16 12:30] LABS: Estradiol, Total 18.9 pg/mL
[2021-01-17 05:45] LABS: Sex Hormone Binding Globulin 68.1 nmol/L (17.3-125.0)
[2021-01-17 10:25] LABS: Dehydroepiandrosterone Sulfate 97.1 ug/dL (20.4-186.6)
[2021-01-28 07:08] LABS: Percent Free Testosterone 1.87 % (0.50-2.80); Testosterone Free 0.55 ng/dL (0.10-0.85); Testosterone Total 29.2 ng/dL (7.0-40.0)
== END ==
PROVIDERS: PCP Registered Nurse; Referring Provider Student in an Organized Health Care Education/Training Program; Visit Provider Student in an Organized Health Care Education/Training Program
DX: Z01.812 Encounter for preprocedural laboratory examination (principal); Z20.822 Contact with and (suspected) exposure to COVID-19; E03.9 Hypothyroidism, unspecified
CPT/HCPCS: 36415; 82627; 82670; 83001; 83002; 84270; 84402; 84403; 84443; 84481; 87635; C9803

== ENCOUNTER 2021-01-19 07:11 | Day surgery (SDC) | payer MEDICARE, OTHER, SELFPAY ==
[2021-01-19 07:32] VITALS: BP 124/82; PULSE 87; RESP 16; TEMP 37.2; O2SAT 96; BMI 29.7
[2021-01-19] MEDS: LACTATED RINGERS 1,000 ML 200 ML IV (07:59)
--- NOTE | 2021-01-19 08:39 | PM.HP.1 ---
History of Present Illness History of Present Illness Date Patient Seen: 01/19/21 Time Patient Seen: 08:39 Chief complaint: COLONOSCOPY Narrative: The patient presents for colorectal sreening. She has had previous colonoscopies notable for benign polyps most recently 6 years ago. No personal or family history of colon cancer. On further history denies any recent gastrointestinal symptoms. No nausea, vomiting, abdominal pain, loss of appetite, unexplained weight loss, change in bowel habits, diarrhea, constipation, melena, hematochezia, or bright red blood per rectum. 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 Tobacco & Substance use: Smoking Status Never smoker alcohol intake frequency holiday/special occasion Substance Use Type does not use Meds Home Medications and Allergies Home Medications Medication Instructions Recorded Confirmed Type AMINOBENZOIC ACID/BIOTIN/CA (#B 1 cap PO PRN #0 06/25/11 01/19/21 History COMPLEX) MULTIVITAMIN (#MULTIPLE VITAMINS) 1 cap PO PRN #0 06/25/11 01/19/21 History [VITAMIN C] 500 mg PO PRN #0 06/25/11 01/19/21 History [VITAMIN D] 2,000 iu PO QDAY #0 06/25/11 01/19/21 History Respironics Remstar CPAP #1 ea 12/20/18 09/29/20 History Melatonin 1 tab PO DAILY 11/20/19 01/19/21 History famotidine 20 mg tablet 20 mg PO DAILY 11/20/19 01/19/21 History magnesium oxide 500 mg capsule 500 mg PO DAILY 11/20/19 01/19/21 History levothyroxine 75 mcg capsule 75 mcg PO DAILY #30 cap 01/07/20 01/19/21 Rx rivaroxaban 10 mg tablet (Xarelto) 10 mg PO DAILY 01/19/21 01/19/21 History Allergies Allergy/AdvReac Type Severity Reaction Status Date / Time No Known Drug Allergies Allergy Verified 01/19/21 07:19 Exam Vital Signs (past 8 hours): - 01/19/21 07:32 Temperature 98.9 F Pulse Rate 87 Respiratory Rate 16 Blood Pressure 124/82 Pulse Oximetry 96 Oxygen Delivery Method Room Air Narrative Exam Narrative: Constitutional-She is oriented to person, place and time. No apparent distress Cardiovascular- regular rate, no peripheral edema Pulmonary-unlabored respiratory effort, no audible wheezing Abdominal-soft, non-tender, non-distended Musculoskeletal-no cyanosis or clubbing Neurological-nonfocal, normal strength throughout, Skin-warm and dry Assessment & Plan Assessment and plan (1) Personal history of colonic polyps: Status: Acute Assessment & Plan narrative: The patient requires colorectal screening and colonoscopy is recommended. Technical details were discussed. Risks, benefits, alternatives explained. Risks including but not limited to myocardial infarction, aspiration, bleeding, pain, missed lesion, incomplete examination, need for further radiographic studies, colonic perforation, and need for major abdominal surgery were discussed. All questions were answered to their satisfaction, and they are in agreement with this plan. Time Spent With Patient Critical Care time: I spent a total of [] minutes of critical care time on this patient's care today; this time is exclusive of procedural time.
[2021-01-19] MEDS: MIDAZOLAM 5 MG/5 ML VIAL IV (08:50)
[2021-01-19] MEDS: fentaNYL 250 MCG/5 ML INJ IV (08:54)
--- NOTE | 2021-01-19 09:07 | PM.OP.COLON ---
Operative Date/Time/Diagnoses Date of procedure: 01/19/21 Time of procedure: 09:07 Pre-op diagnosis: Personal history of colonic polyps Post-op diagnosis: same Procedure & Clinicians Study performed: Colonoscopy Same procedure as scheduled: Yes Indications: Personal history of colonic polyps Surgeon: Luis Mathis Procedure Notes Procedure in detail: Medications: Conscious sedation using 5 mg IV midazolam and 200 mcg IV of fentanyl The history and physical was performed/updated and the patient is ASA class is 2. The procedure was discussed in detail with the patient. Potential risks complications including infection, bleeding, missed diagnosis, perforation, need for surgery, and were explained. Their questions were answered and informed consent was obtained. Patient was brought to the procedure room and placed standard monitoring equipment. The patient's vital signs were monitored continuously throughout the entire procedure. Prior to starting time-out was performed. The patient was placed in the left lateral recumbent position. Procedural sedation was administered. Examination began with a thorough inspection of the perianal area there was no evidence of fissures, fistulae, external hemorrhoids or cutaneous malignancy. The colonoscopy scope was then placed into the anal canal and was advanced to the cecum, which was identified by the ileocecal valve, the appendiceal orifice and the confluence of the taenia. The scope was then slowly withdrawn examining colon thoroughly in all directions, irrigating it of any residual stool. FINDINGS 1. Sigmoid diverticulosis 2. No masses or polyps 3. Grade 2 internal hemorrhoids The patient tolerated the procedure well. They will be discharged once criteria are met. The prep was of good/excellent quality. The withdrawl time was 7 minutes. The sedation time was 20 minutes. Specimen(s): none sent Complications: none Impression: Normal colonoscopy Post-procedure Recommendations: Colonoscopy in 10 years Disposition: same day surgery
[2021-01-19 09:09] VITALS: BP 122/71; PULSE 77; RESP 14; TEMP 36.6; O2SAT 93
[2021-01-19 09:14] VITALS: BP 113/67; PULSE 76; RESP 16; O2SAT 93
[2021-01-19 09:19] VITALS: BP 110/68; PULSE 77; RESP 16; O2SAT 94
[2021-01-19 09:24] VITALS: BP 108/70; PULSE 76; RESP 16; TEMP 36.2; O2SAT 93
== END 2021-01-19 09:37 | disposition home or self-care (01) ==
PROVIDERS: PCP Registered Nurse; Referring Provider Surgery; Visit Provider Surgery
PROC: 0DJD8ZZ Inspection of Lower Intestinal Tract, Via Natural or Artificial Opening Endoscopic (ICD-10-PCS; CPT 45378; principal; 2021-01-19 08:30)
DX: Z12.11 Encounter for screening for malignant neoplasm of colon (principal); Z86.010 Personal history of colon polyps; G47.33 Obstructive sleep apnea (adult) (pediatric); K57.30 Diverticulosis of large intestine without perforation or abscess without bleeding; K64.1 Second degree hemorrhoids
CPT/HCPCS: G0105; 99152; J2250; J3010

== ENCOUNTER → 2021-02-25 08:04 | Outpatient (CLI) | payer MEDICARE, OTHER, SELFPAY ==
--- NOTE | 2021-02-25 | DI.US.S_ITS ---
PROCEDURE: US THYROID INDICATIONS: NODULES TECHNIQUE: Real-time scanning was performed of the thyroid gland, with image documentation. COMPARISON: [facility], US, US THYROID, 11/27/2019, 10:13. FINDINGS: Right: Thyroid lobe measures 5.2 x 2.0 x 1.9 cm, and is diffusely heterogeneous in echotexture. Left: Thyroid lobe measures 4.9 x 1.1 x 1.7 cm, and is diffusely heterogeneous in echotexture. Isthmus: 3.1 mm thick. Nodule number: 1 Location: Right superior Size: Unchanged 1.2 x 0.8 x 0.9 cm. Composition: Predominantly solid Echogenicity: Hypoechoic Shape: wider than tall. Margins: Small Echogenic foci: None. Total points: 4 ACR TI-RADS category: Moderately suspicious Nodule number: 2 Location: Right inferior Size: Unchanged 0.7 x 0.6 x 0.8 cm. Composition: Solid Echogenicity: Hypoechoic Shape: wider than tall. Margins: Smooth Echogenic foci: None Total points: 4 ACR TI-RADS category: Moderately suspicious Nodule number: 3 Location: Left superior Size: Unchanged 0.5 x 0.4 x 0.6 cm. Composition: Predominantly solid Echogenicity: Predominantly isoechoic Shape: wider than tall. Margins: Smooth Echogenic foci: None Total points: 3 ACR TI-RADS category: Mildly suspicious Nodule number: 4 Location: Left inferior Size: Unchanged 1.1 x 0.7 x 0.7 cm. Composition: Solid Echogenicity: Predominantly isoechoic Shape: wider than tall. Margins: Smooth Echogenic foci: Peripheral calcification Total points: 5 ACR TI-RADS category: Moderately suspicious IMPRESSION: No change in appearance or size of bilateral thyroid nodules. Recommend continued followup ultrasound as detailed below. ACR TI-RADS definitions and recommendations: TI-RADS 1 (benign): 0 points. FNA not needed. TI-RADS 2 (not suspicious): 2 points. FNA not needed. TI-RADS 3 (mildly suspicious): 3 points. * FNA if 2.5 cm or larger, follow up if 1.5 cm or larger (at 1, 3, and 5 years). TI-RADS 4 (moderately suspicious): 4-6 points. * FNA if 1.5 cm or larger, follow up if 1 cm or larger (at 1, 2, 3, and 5 years). TI-RADS 5 (highly suspicious): 7 points or more. * FNA if 1 cm or larger, follow up if 0.5 cm or larger (every year for 5 years). Dictated by: Shaheen PERRY Interpreted: Miguel Angel Ramirez MD on 02/25/2021 at 9:10 Transcribed by: JATINDER on 02/25/2021 at 9:15 Approved by: Miguel Angel Ramirez M.D. on 02/25/2021 at 14:35
== END ==
PROVIDERS: PCP Registered Nurse; Referring Provider Student in an Organized Health Care Education/Training Program; Visit Provider Student in an Organized Health Care Education/Training Program
DX: E03.9 Hypothyroidism, unspecified (principal); E04.2 Nontoxic multinodular goiter
CPT/HCPCS: 76536

== ENCOUNTER → 2021-06-02 07:00 | Outpatient (CLI) | payer MEDICARE, OTHER, SELFPAY ==
[2021-06-02 08:11] LABS: Alanine Aminotransferase 13 IU/L (<35); Albumin 3.7 g/dL (3.5-5.0); Albumin Globulin Ratio 1.5 (1.0-2.8); Alkaline Phosphatase 60 U/L (38-126); Aspartate Aminotransferase 21 IU/L (14-36); BUN Creatinine Ratio 22.8 (6-22); Bilirubin Total 0.5 mg/dL (0.2-1.3); Blood Urea Nitrogen 18 mg/dL (7-17); Carbon Dioxide 26 mmol/L (22-32); Chloride 109 mmol/L (98-107); Cholesterol 197 mg/dL (140-199); Estimated Glomerular Filt Rate > 60.0 mL/min (>60); Globulin 2.4 g/dL (1.7-4.1); Glucose 93 mg/dL (80-110); HDL Cholesterol 85 mg/dL (40-60); HEMOLYSIS < 15 (0-50); LDL Cholesterol Calculated 95 mg/dL (<100); Potassium 4.3 mmol/L (3.4-5.1); Sodium 139 mmol/L (137-145); Total Protein 6.1 g/dL (6.3-8.2); Triglycerides 87 mg/dL (35-150)
== END ==
PROVIDERS: PCP Registered Nurse; Referring Provider Registered Nurse; Visit Provider Registered Nurse
DX: E78.5 Hyperlipidemia, unspecified (principal)
CPT/HCPCS: 36415; 80053; 80061

== ENCOUNTER → 2021-09-22 15:13 | Outpatient (CLI) | payer MEDICARE, OTHER, SELFPAY ==
[2021-09-22 17:35] LABS: COVID19 -Nasal RAPID Negative (Negative)
== END ==
PROVIDERS: PCP Registered Nurse; Visit Provider Surgery
DX: Z01.812 Encounter for preprocedural laboratory examination (principal); Z20.822 Contact with and (suspected) exposure to COVID-19
CPT/HCPCS: 87635; C9803

== ENCOUNTER 2021-09-23 07:16 | Day surgery (SDC) | payer MEDICARE, OTHER, SELFPAY ==
--- NOTE | 2021-09-23 | PATH_ITS ---
[facility] Accession Number: [id number] . 01 Material submitted: . esophagus - ESOPHAGUS AT LOWER 30 . 01 Diagnosis: Esophagus, Lower Third 30, Biopsy: Ulcerated columnar mucosa with specialized intestinal metaplasia, consistent with Keating's esophagus. Negative for dysplasia and malignancy. MRV 09/29/2021 1241 Local . 01 Electronically signed: . Bianca Fernandez MD, Pathologist NPI- [id number] . 01 Gross description: . ESOPHAGUS AT LOWER 30: Received in formalin are 2 fragment(s) of oliveira, soft tissue measuring 0.5 x 0.2 x 0.2 cm to 0.2 x 0.1 x 0.1 cm submitted entirely in 1 cassette(s) /CPE 09/24/2021 0810 Local . 01 Microscopic: . An AB/PAS stain was performed to evaluate for intestinal metaplasia, and is positive. The control stain showed appropriate reactivity. . 01 Pathologist provided ICD-10: K22.70 . 01 CPT . 879054, 436321 Specimen Comment: A courtesy copy of this report has been sent to [phone] Performed at: 01 [facility] [address] [place] [address] [address], [place], [place] [id number] MD Victor Hugo Rodriguez MD Phone: [phone]
[2021-09-23 07:50] VITALS: BP 112/75; PULSE 71; RESP 16; TEMP 36.6; O2SAT 95; BMI 30.5
[2021-09-23] MEDS: SODIUM CHLORIDE 0.9% 1,000 ML 70 ML IV (08:00)
--- NOTE | 2021-09-23 08:14 | P.HP_ITS ---
History of Present Illness History of Present Illness Date Patient Seen: 09/23/21 Time Patient Seen: 08:10 Chief complaint: EKG W/POSS BX Narrative: Patient is a very pleasant 71-year-old female who presented for EGD. She does have a personal history of Keating's esophagus. Her last EGD was 04/26/2018. She does have a history of a paraesophageal hernia repair. She has never had Keating's dysplasia. She recently restarted taking a PPI [id number] due t o worsening symptoms of heartburn. 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 Tobacco & Substance use: Smoking Status Never smoker alcohol intake frequency other Substance Use Type does not use Meds Home Medications and Allergies Home Medications Medication Instructions Recorded Confirmed Type AMINOBENZOIC ACID/BIOTIN/CA (#B 1 cap PO DAILY #0 06/25/11 09/23/21 History COMPLEX) MULTIVITAMIN (#MULTIPLE VITAMINS) 1 cap PO PRN #0 06/25/11 09/23/21 History [VITAMIN C] 500 mg PO DAILY #0 06/25/11 09/23/21 History cholecalciferol (vitamin D3) 50 100 mcg PO DAILY #0 06/25/11 09/23/21 History mcg (2,000 unit) capsule (Vitamin D3) Respironics Remstar CPAP #1 ea 12/20/18 05/28/21 History Melatonin 1 tab PO DAILY 11/20/19 09/23/21 History famotidine 20 mg tablet 20 mg PO DAILY 11/20/19 09/23/21 History magnesium oxide 500 mg capsule 500 mg PO DAILY 11/20/19 09/23/21 History coenzyme Q10 75 mg capsule (Ultra 75 mg PO DAILY 05/28/21 09/23/21 History CoQ10) Gaviscon 2 tab PO BEDTIME 09/23/21 09/23/21 History Tums PO PRN PRN 09/23/21 History calcium 09/23/21 History levothyroxine 100 mcg tablet 100 mcg PO DAILY 09/23/21 09/23/21 History omeprazole 20 mg capsule,delayed 20 mg PO DAILY 09/23/21 09/23/21 History release psyllium husk 3.4 gram/5.4 gram 1 tsp PO DAILY 09/23/21 09/23/21 History oral powder (Metamucil) rivaroxaban 20 mg tablet (Xarelto) 20 mg PO DAILY 09/23/21 09/23/21 History selenium 200 mcg tablet 200 mcg PO DAILY 09/23/21 09/23/21 History Allergies Allergy/AdvReac Type Severity Reaction Status Date / Time No Known Drug Allergies Allergy Verified 05/28/21 10:58 Review of Systems Review of Systems ROS: Yes All systems reviewed with the patient and are negative except as otherwise documented Exam Vital Signs (past 8 hours): - 09/23/21 07:50 Temperature 97.8 F Pulse Rate 71 Respiratory Rate 16 Blood Pressure 112/75 Pulse Oximetry 95 Oxygen Delivery Method Room Air Const General: cooperative, healthy appearing, comfortable, well developed, well groomed and No in distress HENMT Head: normocephalic and atraumatic Resp Effort & Inspection: normal respiratory effort and able to speak in complete sentences Auscultation: clear to auscultation bilaterally Cardio Rate: regular rate Rhythm: regular rhythm GI Palpation: soft Extrem General: no clubbing, cyanosis or edema Assessment & Plan Assessment & Plan narrative: 1. History of Keating's esophagus 2. Gastroesophageal reflux EGD today, further recommendations to follow Time Spent With Patient Critical Care time: I spent a total of [] minutes of critical care time on this patient's care today; this time is exclusive of procedural time.
[2021-09-23 08:43] VITALS: BP 106/67; PULSE 74; RESP 16; TEMP 36.3; O2SAT 87
--- NOTE | 2021-09-23 08:46 | PM.OP.EGD ---
Operative Date/Time/Diagnoses Date of procedure: 09/23/21 Time of procedure: 08:33 Procedure Notes Procedure in detail: Surgeon: Barbie Bravo DO Procedure: Esophagogastroduodenoscopy with biopsy Preoperative diagnosis: 1. Keating's esophagus 2. Gastroesophageal reflux Postoperative diagnosis: 1. Erosive esophagitis with ulcerations 2. Small hiatal hernia, evidence of prior surgery 3. Duodenal diverticulum Medications: MAC Preanesthesia Assessment An H and P was performed/updated and the Px?s ASA class is 2. The procedure was discussed in detail with the patient. The potential risks and complications including infection, bleeding, missed lesions, perforation, need for surgery in case of perforation, prolonged hospital stay, and were explained. A brief question and answer period was allotted and once all questions were answered, informed consent was obtained. The patient was brought back to the procedure room and placed on standard monitoring. The patient?s vital signs were monitored continuously throughout the entire procedure. Prior to starting, a timeout was performed to confirm the patient?s identity, allergies, medications, and procedure. Procedure in detail The patient was placed in left lateral decubitus position and a bite block was inserted. The tip of the upper endoscope was placed into the mouth and advanced without difficulty under direct visualization into the esophagus. Esophagus: LA-D Erosive esophagitis with ulcerations found in the lower 3rd of the esophagus. 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 Complications There were no complications and estimated blood loss was minimal. Recommendations: Resume previous diet Continue outPx medications, okay to resume anticoagulation Increase proton pump inhibitor to twice daily Follow up pathology results Repeat EGD in 8 weeks Office follow up to be scheduled after repeat EGD An emergency contact number was given to the patient for any complications related to the procedure
[2021-09-23 08:48] VITALS: BP 112/71; PULSE 75; RESP 16; O2SAT 100
[2021-09-23 08:53] VITALS: BP 107/72; PULSE 74; RESP 14; O2SAT 70
[2021-09-23 09:02] VITALS: BP 117/77; PULSE 74; RESP 16; TEMP 36.5; O2SAT 95
== END 2021-09-23 09:20 | disposition home or self-care (01) ==
PROVIDERS: PCP Registered Nurse; Referring Provider Student in an Organized Health Care Education/Training Program; Visit Provider Student in an Organized Health Care Education/Training Program
PROC: 0DJ08ZZ Inspection of Upper Intestinal Tract, Via Natural or Artificial Opening Endoscopic (ICD-10-PCS; CPT 43235; principal; 2021-09-23 08:30)
DX: K22.70 Barrett's esophagus without dysplasia (principal); K21.9 Gastro-esophageal reflux disease without esophagitis; K44.9 Diaphragmatic hernia without obstruction or gangrene; K21.00 Gastro-esophageal reflux disease with esophagitis, without bleeding; K57.10 Diverticulosis of small intestine without perforation or abscess without bleeding
CPT/HCPCS: 43239; J2704

== ENCOUNTER 2021-11-16 07:33 | Day surgery (SDC) | payer MEDICARE, OTHER, SELFPAY ==
[2021-11-16 07:46] VITALS: BP 108/69; PULSE 73; RESP 18; TEMP 36.2; O2SAT 97; BMI 31.0
[2021-11-16] MEDS: SODIUM CHLORIDE 0.9% 1,000 ML 84 ML IV (07:56)
[2021-11-16 08:07] LABS: COVID19 -Nasal RAPID Negative (Negative)
--- NOTE | 2021-11-16 08:14 | PM.HP.1 ---
History of Present Illness History of Present Illness Date Patient Seen: 11/16/21 Time Patient Seen: 08:14 Chief complaint: EGD W/POSS BX Narrative: History of Barretts and esophagitis. Improved with anti reflux therapy. Omeprazole twice daily. She is off Xarelto x2 weeks. Patient History Medical History Constipation GERD (gastroesophageal reflux disease) Hypersomnia Insomnia, persistent Obstructive sleep apnea of adult Post-menopausal Snoring Surgical History History of cholecystectomy History of colonoscopy History of esophagogastroduodenoscopy (EGD) History of hernia repair History of tonsillectomy History of tubal ligation (~1996) S/P repair of paraesophageal hernia Status post endovenous radiofrequency ablation of saphenous vein Family & Social History Social History: household members none lives independently Yes caregiver/support person No other self-employed Tobacco & Substance use: Smoking Status Never smoker alcohol intake former alcohol intake frequency other Substance Use Type does not use Meds Home Medications and Allergies Home Medications Medication Instructions Recorded Confirmed Type AMINOBENZOIC ACID/BIOTIN/CA (#B 1 cap PO DAILY ##0 06/25/11 09/23/21 History COMPLEX) MULTIVITAMIN (#MULTIPLE VITAMINS) 1 cap PO PRN ##0 06/25/11 11/16/21 History [VITAMIN C] 500 mg PO DAILY ##0 06/25/11 09/23/21 History cholecalciferol (vitamin D3) 50 100 mcg PO DAILY ##0 06/25/11 09/23/21 History mcg (2,000 unit) capsule (Vitamin D3) Respironics Remstar CPAP #1 ea 12/20/18 05/28/21 History Melatonin 1 tab PO DAILY 11/20/19 09/23/21 History famotidine 20 mg tablet 20 mg PO DAILY 11/20/19 09/23/21 History coenzyme Q10 75 mg capsule (Ultra 75 mg PO DAILY 05/28/21 09/23/21 History CoQ10) Gaviscon 2 tab PO BEDTIME 09/23/21 09/23/21 History Tums PO PRN PRN Heartburn 09/23/21 History calcium 75 mg DAILY 09/23/21 11/16/21 History levothyroxine 100 mcg tablet 100 mcg PO DAILY 09/23/21 09/23/21 History psyllium husk 3.4 gram/5.4 gram 1 tsp PO DAILY 09/23/21 09/23/21 History oral powder (Metamucil) rivaroxaban 20 mg tablet (Xarelto) 20 mg PO DAILY 09/23/21 09/23/21 History selenium 200 mcg tablet 200 mcg PO DAILY 09/23/21 09/23/21 History omeprazole 20 mg capsule,delayed 20 mg PO BID 10/07/21 History release Vitamin B-12 1,000 mcg DAILY 11/16/21 History Vitamin D3 1,000 units DAILY 11/16/21 History ginkgo biloba 40 mg tablet 40 mg PO DAILY 11/16/21 11/16/21 History magnesium 250 mg tablet 250 mg PO DAILY 11/16/21 11/16/21 History omega-3 fatty acids 435 mg PO DAILY 11/16/21 11/16/21 History thyroid (pork) 60 mg tablet 60 mg PO DAILY 11/16/21 11/16/21 History ([place] Thyroid) Allergies Allergy/AdvReac Type Severity Reaction Status Date / Time No Known Drug Allergies Allergy Verified 05/28/21 10:58 Review of Systems Review of Systems ROS: Yes All systems reviewed with the patient and are negative except as otherwise documented Exam Vital Signs (past 8 hours): - 11/16/21 07:46 Temperature 97.2 F L Pulse Rate 73 Respiratory Rate 18 Blood Pressure 108/69 Pulse Oximetry 97 Oxygen Delivery Method Room Air Oxygen Delivery Method Room Air Const General: cooperative HENMT Head: normal to inspection Eyes General: appearance normal, both eyes and all related structures Neck Neck: normal visual inspection Chest Chest: normal inspection of the chest Resp Effort & Inspection: normal respiratory effort Cardio Rate: regular rate GI Inspection: normal to inspection Skin General: no rashes or lesions noted Neuro General: patient alert and patient awake Extrem General: normal to inspection and no pedal edema Psych Appearance: grossly normal Objective Labs Labs: Laboratory Results - last 24 hr 11/16/21 07:40 SARS-CoV-2 (PCR) Negative Assessment & Plan Assessment & Plan narrative: 71-year-old female with a history of Barretts and LA grade D erosive esophagitis. She is here for repeat EGD and distal esophageal biopsies. Time Spent With Patient Critical Care time: I spent a total of [] minutes of critical care time on this patient's care today; this time is exclusive of procedural time.
--- NOTE | 2021-11-16 08:15 | PM.PREOP ---
Pre-operative Note COVID-19 COVID-19 status: Negative Result date/Date tested (Pos, Neg/Pending): 11/16/21 Criteria for continued procedure: Possibility delay results in more complex future surgery or treatment Interval Note History & Physical reviewed/Exam performed by Physician: Yes Changes to H&P: No ASA Class (for procedural sedation): II
--- NOTE | 2021-11-16 09:12 | P.OP.EGD_ITS ---
Operative Date/Time/Diagnoses Date of procedure: 11/16/21 Time of procedure: 09:12 Pre-op diagnosis: Barretts and severe esophagitis Post-op diagnosis: same Procedure & Clinicians Study performed: EGD Same procedure as scheduled: Yes Indications: Barretts and severe esophagitis Surgeon: Jabari Robledo Procedure Notes SCOAP/Timeout: Done Procedure in detail: After the risks and benefits were explained, written and verbal informed consent was obtained. The patient was brought into the procedure room and placed into the left lateral decubitus position. Please see nurse paper cup handle machine operator notes for sedation details. The scope was introduced into the mouth through the bite block and advanced under direct visualization to the 2nd portion of the duodenum. The scope was slowly withdrawn carefully examining the mucosa for any defects or lesions. Retroflexed views were accomplished in the stomach. The stomach was decompressed, the scope was then removed from the patient who tolerated the procedure well. Sedation minutes: 8 Specimen(s): none sent Complications: none Impression: 1. Duodenum: Not seen today. In order to advance through the pylorus I would have had to put a loop into the stomach and was concerned that this may induce considerable reflux. 2. Stomach: The patient has a moderate-sized hiatal hernia. 3. Esophagus: The squamocolumnar junction extended up to about 29 cm from incisors consistent with Barretts. The GE junction was at roughly 32-33 cm from the incisors. I considered biopsying more extensively throughout the Keating's segment which would be judged C3.5M4. However patient had a moderate amount of food debris still sitting in the hiatal hernia sac. I was able to advance this with the scope tip down into stomach proper. However the patient consistently and continuously refluxed gastric contents back up into the esophagus and I therefore did not feel it was appropriate or safe to delay the case any further for the distal esophageal biopsies. The previously described LA grade D erosive esophagitis appeared to have completely healed. No sign of any active inflammation no ulceration no nodularity. Endoscopic diagnosis 1. C3.5M4 Keating's 2. Healed esophagitis 3. Hiatal hernia Post-procedure Plan for aftercare: 1. Continue anti-reflux therapy. 2. Repeat EGD within the next 6-12 months for more extensive Barretts biopsies 3. For the next endoscopy consider a lengthy y ear period of time to be nothing by mouth for solids. Disposition: PACU
[2021-11-16 09:15] VITALS: BP 86/52; PULSE 64; RESP 14; TEMP 35.9; O2SAT 92
[2021-11-16 09:20] VITALS: BP 101/63; PULSE 62; RESP 14; TEMP 36; O2SAT 92
[2021-11-16 09:25] VITALS: BP 115/67; PULSE 70; RESP 14; TEMP 36.4; O2SAT 96
[2021-11-16 09:32] VITALS: BP 111/75; PULSE 66; RESP 15; TEMP 36.4; O2SAT 94
== END 2021-11-16 09:45 | disposition home or self-care (01) ==
PROVIDERS: PCP Family Medicine; Referring Provider Internal Medicine Gastroenterology; Visit Provider Internal Medicine Gastroenterology
PROC: 0DJ08ZZ Inspection of Upper Intestinal Tract, Via Natural or Artificial Opening Endoscopic (ICD-10-PCS; CPT 43235; principal; 2021-11-16 08:30)
DX: K22.70 Barrett's esophagus without dysplasia (principal); Z20.822 Contact with and (suspected) exposure to COVID-19; K44.9 Diaphragmatic hernia without obstruction or gangrene
CPT/HCPCS: 43239; 87635; C9803; J2704; J3010

== ENCOUNTER → 2022-01-11 08:24 | Outpatient (CLI) | payer MEDICARE, OTHER, SELFPAY ==
--- NOTE | 2022-01-11 | DI.MG.S_ITS ---
BILATERAL DIGITAL SCREENING MAMMOGRAM 3D/2D WITH CAD: 01/11/2022 CLINICAL: Routine screening. Family history of breast cancer. Comparison is made to exams dated: 01/10/2021 mammogram, 12/11/2019 mammogram, and 10/14/2018 mammogram - [facility]. Both breasts are heterogeneously dense, which may obscure small masses (category c / 51-75% glandular tissue). Current study was also evaluated with a Computer Aided Detection (CAD) system. No significant masses, calcifications, or other findings are seen in either breast. There has been no significant interval change. IMPRESSION: NEGATIVE There is no mammographic evidence of malignancy. A 1 year screening mammogram is recommended. Based on the Tyrer Cuzick model (a risk assessment model) the patient's lifetime risk is 13.9% and her 10 year risk is 8.9%. According to the ACR, ACS, and NCCN guidelines, an annual breast MRI exam along with mammogram is recommended if the patient's lifetime risk is 20% or greater. This exam was interpreted at Station ID: [id number]. NOTE: For mammograms, a report in lay terms will be sent to the patient. Approximately 15% of breast malignancies will not be visualized mammographically. In the management of a palpable breast mass, a negative mammogram must not discourage biopsy of a clinically suspicious lesion. Electronically Signed By: Dami oliver/britta:01/11/2022 12:23:11 letter sent: Normal Exam ACR BI-RADS Category 1: Negative 3341F
== END ==
PROVIDERS: PCP Family Medicine; Referring Provider Family Medicine; Visit Provider Family Medicine
DX: Z12.31 Encounter for screening mammogram for malignant neoplasm of breast (principal); Z80.3 Family history of malignant neoplasm of breast
CPT/HCPCS: 77063; 77067

== ENCOUNTER → 2022-03-02 16:16 | Outpatient (CLI) | payer MEDICARE, OTHER, SELFPAY ==
--- NOTE | 2022-03-02 16:25 | DI.RAD.S_ITS ---
PROCEDURE: XR HAND LT MIN 3V INDICATIONS: wrist injury after fall TECHNIQUE: 3 views of the hand(s) acquired. COMPARISON: None. FINDINGS: Bones: No fractures or dislocations. Carpal bones are normally aligned. No suspicious bony lesions. Trace scaphoid 1st CMC joint osteoarthritis. Soft tissues: No suspicious soft tissue calcifications. IMPRESSION: No fracture. No acute osseous lesion. If symptoms and/or clinical suspicion for pathology persists, further assessment with repeat radiographs (7-10 days) or advanced imaging (e.g. CT, MRI or bone scan) should be considered. Dictated by: Vita James MD, PhD on 03/02/2022 at 17:00 Approved by: Vita James MD, PhD on 03/02/2022 at 17:00
--- NOTE | 2022-03-02 16:25 | DI.RAD.S_ITS ---
PROCEDURE: XR WRIST RT MIN 3V INDICATIONS: wrist injury after fall TECHNIQUE: 4 views of the wrist were acquired. COMPARISON: None. FINDINGS: Bones: No fractures or dislocations. No suspicious bony lesions. Accessory ossicle noted adjacent to the or styloid process. Osteoarthritic degenerative changes noted. Scaphoid view: Scaphoid is intact. Soft tissues: No suspicious soft tissue calcifications. IMPRESSION: No fracture. No acute osseous lesion. If symptoms and/or clinical suspicion for pathology persists, further assessment with repeat radiographs (7-10 days) or advanced imaging (e.g. CT, MRI or bone scan) should be considered. Dictated by: Vita James MD, PhD on 03/02/2022 at 17:02 Approved by: Vita James MD, PhD on 03/02/2022 at 17:03
--- NOTE | 2022-03-02 16:25 | DI.RAD.S_ITS ---
PROCEDURE: XR WRIST LT MIN 3V INDICATIONS: wrist injury after fall TECHNIQUE: For views of the wrist were acquired. COMPARISON: None. FINDINGS: Bones: No fractures or dislocations. No suspicious bony lesions. Osteoarthritic degenerative changes noted. Scaphoid view: Scaphoid is intact. Soft tissues: No suspicious soft tissue calcifications. IMPRESSION: No fracture. No acute osseous lesion. If symptoms and/or clinical suspicion for pathology persists, further assessment with repeat radiographs (7-10 days) or advanced imaging (e.g. CT, MRI or bone scan) should be considered. Dictated by: Vita James MD, PhD on 03/02/2022 at 17:02 Approved by: Vita James MD, PhD on 03/02/2022 at 17:02
--- NOTE | 2022-03-02 16:25 | DI.RAD.S_ITS ---
PROCEDURE: XR HAND RT MIN 3V INDICATIONS: wrist injury after fall TECHNIQUE: 3 views of the hand(s) acquired. COMPARISON: None. FINDINGS: Bones: No fractures or dislocations. Carpal bones are normally aligned. No suspicious bony lesions. Polyarticular osteoarthritic degenerative changes. Soft tissues: No suspicious soft tissue calcifications. IMPRESSION: No fracture. No acute osseous lesion. If symptoms and/or clinical suspicion for pathology persists, further assessment with repeat radiographs (7-10 days) or advanced imaging (e.g. CT, MRI or bone scan) should be considered. Dictated by: Vita James MD, PhD on 03/02/2022 at 17:01 Approved by: Vita James MD, PhD on 03/02/2022 at 17:02
== END ==
PROVIDERS: PCP Family Medicine; Referring Provider Physician Assistant Medical; Visit Provider Physician Assistant Medical
DX: S69.90XA Unspecified injury of unspecified wrist, hand and finger(s), initial encounter (principal); M18.12 Unilateral primary osteoarthritis of first carpometacarpal joint, left hand
CPT/HCPCS: 73110; 73130

== ENCOUNTER → 2022-06-04 07:13 | Outpatient (CLI) | payer MEDICARE, OTHER, SELFPAY ==
[2022-06-04 07:48] LABS: Add Manual Diff / Slide Review NO; Basophils Absolute Auto 100 /uL (0-100); Basophils Percent Auto 1.3 % (0-2); Eosinophils Absolute Auto 200 /uL (0-450); Eosinophils Percent Auto 3.1 % (2-4); Hematocrit 34.3 % (36-46); Hemoglobin 11.3 g/dL (12.0-16.0); Lymphocytes Absolute Auto 1300 /uL (1100-4500); Lymphocytes Percent Auto 24.6 % (25-40); Mean Corpuscular HGB Conc 33.1 % (30-36); Mean Corpuscular Hemoglobin 25.8 PG (26-34); Monocytes Absolute Auto 500 /uL (0-900); Monocytes Percent Auto 9.1 % (3-14); Neutrophils Absolute Auto 3200 /uL (1500-7000); Neutrophils Percent Auto 61.9 % (50-75); Platelet Count 405 X10^3/uL (150-400); Red Blood Cell Count 4.39 X10^6/uL (4.0-5.2); White Blood Cell Count 5.2 X10^3/uL (4.5-11.0)
[2022-06-04 08:10] LABS: Alanine Aminotransferase 20 IU/L (<35); Albumin Globulin Ratio 1.5 (1.0-2.8); Alkaline Phosphatase 75 U/L (38-126); Aspartate Aminotransferase 22 IU/L (14-36); BUN Creatinine Ratio 21.3 (6-22); Bilirubin Total 0.5 mg/dL (0.2-1.3); Blood Urea Nitrogen 17 mg/dL (7-17); Carbon Dioxide 25 mmol/L (22-32); Chloride 105 mmol/L (98-107); Cholesterol 229 mg/dL (140-199); Estimated Glomerular Filt Rate > 60 mL/min (>60); Globulin 2.7 g/dL (1.7-4.1); Glucose 91 mg/dL (80-110); HDL Cholesterol 96 mg/dL (40-60); HEMOLYSIS < 15 (0-50); LDL Cholesterol Calculated 118 mg/dL (<100); Potassium 4.4 mmol/L (3.4-5.1); Sodium 139 mmol/L (137-145); Total Protein 6.7 g/dL (6.3-8.2); Triglycerides 76 mg/dL (35-150)
[2022-06-04 08:41] LABS: TSH w/ Reflex to FT4 0.56 uIU/mL (0.47-4.68)
== END ==
PROVIDERS: PCP Family Medicine; Referring Provider Family Medicine; Visit Provider Family Medicine
DX: E07.9 Disorder of thyroid, unspecified (principal); E78.5 Hyperlipidemia, unspecified; F41.8 Other specified anxiety disorders; M85.80 Other specified disorders of bone density and structure, unspecified site; R92.2 Inconclusive mammogram; Z80.3 Family history of malignant neoplasm of breast
CPT/HCPCS: 36415; 80053; 80061; 84443; 85025

== ENCOUNTER → 2022-06-22 08:17 | Outpatient (CLI) | payer MEDICARE, OTHER, SELFPAY ==
[2022-06-22 09:25] LABS: Add Manual Diff / Slide Review NO; Basophils Absolute Auto 100 /uL (0-100); Basophils Percent Auto 1.2 % (0-2); Eosinophils Absolute Auto 100 /uL (0-450); Eosinophils Percent Auto 2.3 % (2-4); Hematocrit 35.5 % (36-46); Hemoglobin 11.5 g/dL (12.0-16.0); Lymphocytes Absolute Auto 1100 /uL (1100-4500); Lymphocytes Percent Auto 19.7 % (25-40); Mean Corpuscular HGB Conc 32.3 % (30-36); Mean Corpuscular Volume 80.5 fL (80-100); Monocytes Absolute Auto 600 /uL (0-900); Monocytes Percent Auto 10.7 % (3-14); Neutrophils Absolute Auto 3600 /uL (1500-7000); Neutrophils Percent Auto 66.1 % (50-75); Platelet Count 388 X10^3/uL (150-400); Red Blood Cell Count 4.41 X10^6/uL (4.0-5.2); Red Cell Distribution Width 19.1 % (11.6-14.8); White Blood Cell Count 5.4 X10^3/uL (4.5-11.0)
[2022-06-22 09:57] LABS: HEMOLYSIS < 15 (0-50); Iron 91 ug/dL (37-170)
[2022-06-22 10:07] LABS: Ferritin 15 ng/mL (11-264)
[2022-06-22 10:08] LABS: Percent Iron Saturation 21 % (15-50); Total Iron Binding Capacity 443 ug/dL (265-497); Transferrin 344 mg/dL (206-381)
== END ==
PROVIDERS: PCP Family Medicine; Referring Provider Family Medicine; Visit Provider Family Medicine
DX: D64.9 Anemia, unspecified (principal); K22.719 Barrett's esophagus with dysplasia, unspecified; K21.9 Gastro-esophageal reflux disease without esophagitis
CPT/HCPCS: 36415; 82728; 83540; 83550; 85025

== ENCOUNTER 2022-09-06 07:56 | Day surgery (SDC) | payer MEDICARE, OTHER, SELFPAY ==
--- NOTE | 2022-09-06 | PATH_ITS ---
[facility] Accession Number: [id number] No. of containers..02 Tissue . 01 Material submitted: . PART A: gastrointestinal site - GASTRIC POLYP PART B: esophagus - DISTAL ESOPHAGUS X4 . 01 Diagnosis: A. Stomach, Polyp, Biopsy: Fundic gland polyp. No evidence of Helicobacter organisms on H/E stain. Negative for intestinal metaplasia. Negative for dysplasia and malignancy. . B. Distal Esophagus, Biopsies: Squamocolumnar junctional mucosa with specialized intestinal metaplasia, consistent with Keating's esophagus. Negative for dysplasia and malignancy. MRV 09/08/2022 1541 Local . 01 Electronically signed: . Bianca Fernandez MD, Pathologist NPI- [id number] . 01 Gross description: . Part A: GASTRIC POLYP: Received in formalin is 1 fragment(s) of oliveira, soft tissue measuring 0.3 x 0.3 x 0.2 cm submitted entirely in 1 cassette(s) Part B: DISTAL ESOPHAGUS X4: Received in formalin are 4 fragment(s) of oliveira, soft tissue measuring 0.1 x 0.1 x 0.1 cm to 0.2 x 0.2 x 0.1 cm submitted entirely in 1 cassette(s) /FER 09/07/2022 2239 Local . 01 Pathologist provided ICD-10: K22.70, K31.7 . 01 CPT . 656968, 138100 Specimen Comment: A courtesy copy of this report has been sent to [phone] Performed at: 01 [facility] [address] [place] [address] [address], [place], [place] [id number] MD Victor Hugo Rodriguez MD Phone: [phone]
--- NOTE | 2022-09-06 08:42 | PM.HP.1 ---
History of Present Illness History of Present Illness Date Patient Seen: 09/06/22 Time Patient Seen: 08:42 Chief complaint: EGD w/poss bx Narrative: Here for upper endoscopy. History of reflux history of Barretts [facility] Medical History Constipation GERD (gastroesophageal reflux disease) Hypersomnia Insomnia, persistent Obstructive sleep apnea of adult Post-menopausal Snoring Surgical History History of cholecystectomy History of colonoscopy History of esophagogastroduodenoscopy (EGD) History of hernia repair History of tonsillectomy History of tubal ligation (~1996) S/P repair of paraesophageal hernia Status post endovenous radiofrequency ablation of saphenous vein Social History marital status: details: lives in [place] household members: none lives independently: Yes caregiver/support person: No housing: house occupational status: employed other: self-employed Smoking Status: Never smoker alcohol intake: former substance use type: does not use Meds Home Medications and Allergies Home Medications Medication Instructions Recorded Confirmed Type MULTIVITAMIN (#MULTIPLE VITAMINS) 1 cap PO PRN ##0 06/25/11 09/06/22 History [VITAMIN C] 500 mg PO DAILY ##0 06/25/11 09/06/22 History cholecalciferol (vitamin D3) 50 100 mcg PO DAILY ##0 06/25/11 09/06/22 History mcg (2,000 unit) capsule (Vitamin D3) Respironics Remstar CPAP #1 ea 12/20/18 06/08/22 History Gaviscon 2 tab PO BEDTIME 09/23/21 09/06/22 History Tums 2 tab PO PRN PRN Heartburn 09/23/21 09/06/22 History magnesium 250 mg tablet 250 mg PO DAILY 11/16/21 09/06/22 History fluoxetine 20 mg capsule 20 mg PO DAILY #60 caps 06/08/22 09/06/22 Rx omeprazole 40 mg capsule,delayed 40 mg PO BID #90 caps 07/02/22 09/06/22 Rx release levothyroxine 100 mcg tablet 100 mcg PO DAILY #90 tabs 04/27/23 05/22/23 Rx Allergies Allergy/AdvReac Type Severity Reaction Status Date / Time No Known Drug Allergies Allergy Verified 09/06/22 08:25 Review of Systems Review of Systems ROS: Yes All systems reviewed with the patient and are negative except as otherwise documented Exam Const General: cooperative HENMT Head: normal to inspection Eyes General: appearance normal, both eyes and all related structures Neck Neck: normal visual inspection Chest Chest: normal inspection of the chest Resp Effort & Inspection: normal respiratory effort Cardio Rate: regular rate GI Inspection: normal to inspection Skin General: no rashes or lesions noted Neuro General: patient alert and patient awake Extrem General: normal to inspection and no pedal edema Psych Appearance: grossly normal Assessment & Plan Assessment & Plan narrative: 72-year-old female with hiatal hernia, reflux, visual Barretts. Repeat EGD is pursued today.
[2022-09-06 08:43] VITALS: BMI 31.8
--- NOTE | 2022-09-06 08:44 | PM.PREOP ---
Pre-operative Note Interval Note History & Physical reviewed/Exam performed by Physician: Yes Changes to H&P: No ASA Class (for procedural sedation): III
[2022-09-06 08:48] VITALS: BP 126/81; PULSE 72; RESP 14; TEMP 36.7; O2SAT 96
[2022-09-06] MEDS: LACTATED RINGERS 1,000 ML 100 ML IV (08:50)
--- NOTE | 2022-09-06 09:53 | PM.OP.EGD ---
Operative Date/Time/Diagnoses Date of procedure: 09/06/22 Time of procedure: 09:54 Pre-op diagnosis: History of esophagitis hiatal hernia and possible Barretts Post-op diagnosis: same Procedure & Clinicians Study performed: EGD with biopsies Same procedure as scheduled: Yes Indications: History of esophagitis, hiatal hernia, possible Keating's Surgeon: Jabari Robledo Procedure Notes SCOAP/Timeout: Done Procedure in detail: After the risks and benefits were explained, written and verbal informed consent was obtained. The patient was brought into the procedure room and placed into the left lateral decubitus position. Please see anesthesia notes for sedation details. The scope was introduced into the mouth through the bite block and advanced under direct visualization to the 2nd portion of the duodenum. The scope was slowly withdrawn carefully examining the mucosa for any defects or lesions. Retroflexed views were accomplished in the stomach. The stomach was decompressed, the scope was then removed from the patient who tolerated the procedure well. Sedation minutes: 12 Complications: none Impression: 1. Duodenum: Not seen. 2. Pylorus: Normal in appearance 3. Stomach: Patient had a large hiatal hernia. She would not retain any air. The mucosal exam was quite challenging but I did not identify any overt pathology. There were a few small benign-appearing polyps and 1 of these was sampled for histopathologic analysis. No gross pathology other than the hiatal hernia noted. Because of the size of the hiatal hernia the scope seemed to loop in the hernia sac and would not easily advance to cross the pylorus. I did not feel comfortable pushing through this loop and abandoned the idea of a duodenal exam today. 4. Esophagus: The GE junction was at roughly 32 cm from the incisors. The diaphragmatic pinchcock was at roughly 37 cm from the incisors. There was a large amount of stomach within the 5 cm hiatal hernia. 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 For biopsies were acquired from this segment. I did not see any ulcerations or nodules associated with the segment. Proximal to the salmon-colored mucosa in distal esophagus there were a few streaks of subtle erosion consistent with acid reflux induced injury. Endoscopic diagnosis 1. Large hiatal hernia 2. C1 M 4 Barretts 3. Subtle LA grade A erosive esophagitis 4. Diminutive gastric polyps Post-procedure Plan for aftercare: 1. Await histopathology. 2. Consider an increase in omeprazole up to twice daily. 3. Repeat EGD for surveillance in 3 years Disposition: PACU
[2022-09-06 09:55] VITALS: BP 107/68; PULSE 64; RESP 18; TEMP 36.3; O2SAT 90
[2022-09-06 10:01] VITALS: BP 134/91; PULSE 70; RESP 18; O2SAT 90
[2022-09-06 10:06] VITALS: BP 135/99; PULSE 66; RESP 19; O2SAT 96
[2022-09-06 10:11] VITALS: BP 149/100; PULSE 64; RESP 16; O2SAT 94
== END 2022-09-06 10:23 | disposition home or self-care (01) ==
PROVIDERS: PCP Family Medicine; Referring Provider Internal Medicine Gastroenterology; Visit Provider Internal Medicine Gastroenterology
PROC: 0DJ08ZZ Inspection of Upper Intestinal Tract, Via Natural or Artificial Opening Endoscopic (ICD-10-PCS; CPT 43235; principal; 2022-09-06 09:00)
DX: K44.9 Diaphragmatic hernia without obstruction or gangrene (principal); K22.70 Barrett's esophagus without dysplasia; K20.80 Other esophagitis without bleeding; K31.7 Polyp of stomach and duodenum
CPT/HCPCS: 43239; J2704; J3010

== ENCOUNTER → 2023-01-05 11:26 | Outpatient (CLI) | payer MEDICARE, OTHER, SELFPAY ==
[2023-01-05 12:37] LABS: Add Manual Diff / Slide Review NO; Basophils Absolute Auto 100 /uL (0-100); Basophils Percent Auto 0.8 % (0-2); Eosinophils Absolute Auto 100 /uL (0-450); Eosinophils Percent Auto 1.3 % (2-4); Hematocrit 41.6 % (36-46); Hemoglobin 13.9 g/dL (12.0-16.0); Lymphocytes Absolute Auto 1700 /uL (1100-4500); Lymphocytes Percent Auto 23.2 % (25-40); Mean Corpuscular HGB Conc 33.3 % (30-36); Mean Corpuscular Hemoglobin 29.1 PG (26-34); Mean Corpuscular Volume 87.2 fL (80-100); Monocytes Absolute Auto 600 /uL (0-900); Monocytes Percent Auto 7.7 % (3-14); Neutrophils Absolute Auto 4900 /uL (1500-7000); Platelet Count 353 X10^3/uL (150-400); Red Blood Cell Count 4.77 X10^6/uL (4.0-5.2); Red Cell Distribution Width 15.7 % (11.6-14.8); White Blood Cell Count 7.3 X10^3/uL (4.5-11.0)
== END ==
PROVIDERS: PCP Family Medicine; Referring Provider Physician Assistant; Visit Provider Physician Assistant
DX: D64.9 Anemia, unspecified (principal)
CPT/HCPCS: 36415; 85025

== ENCOUNTER → 2023-01-18 08:19 | Outpatient (CLI) | payer MEDICARE, OTHER, SELFPAY ==
--- NOTE | 2023-01-18 | DI.MG.S_ITS ---
BILATERAL DIGITAL SCREENING MAMMOGRAM 3D/2D WITH CAD: 01/18/2023 Comparison is made to exams dated: 01/11/2022 mammogram, 01/10/2021 mammogram, and 12/11/2019 mammogram - [facility]. Both breasts are heterogeneously dense, which may obscure small masses (category c / 51-75% glandular tissue). Current study was also evaluated with a Computer Aided Detection (CAD) system. No significant masses, calcifications, or other findings are seen in either breast. IMPRESSION: NEGATIVE There is no mammographic evidence of malignancy. A 1 year screening mammogram is recommended. Based on the Tyrer Cuzick model (a risk assessment model) the patient's lifetime risk is 13.1% and her 10 year risk is 9.1%. According to the ACR, ACS, and NCCN guidelines, an annual breast MRI exam along with mammogram is recommended if the patient's lifetime risk is 20% or greater. This exam was interpreted at Station ID: [id number]. NOTE: For mammograms, a report in lay terms will be sent to the patient. Approximately 15% of breast malignancies will not be visualized mammographically. In the management of a palpable breast mass, a negative mammogram must not discourage biopsy of a clinically suspicious lesion. Electronically Signed By: Parisa quezada/britta:01/18/2023 17:11:42 letter sent: Normal Exam ACR BI-RADS Category 1: Negative 3341F
== END ==
PROVIDERS: PCP Family Medicine; Referring Provider Family Medicine; Visit Provider Family Medicine
DX: Z12.31 Encounter for screening mammogram for malignant neoplasm of breast (principal)
CPT/HCPCS: 77063; 77067

== ENCOUNTER 2023-03-17 15:15 | Outpatient (RCR) | payer MEDICARE, OTHER, SELFPAY ==
--- NOTE | 2023-01-27 12:44 | PT.OIE ---
Current Diagnoses Pain in right shoulder (01/27/23) Pain in right hip (01/27/23) Pain in right knee (01/27/23) Cervicalgia (01/27/23) Dizziness and giddiness (01/27/23) History of falling (01/27/23) Past Medical History (Last Reviewed 09/06/22 @ 08:42 by Jabari Robledo MD) Constipation GERD (gastroesophageal reflux disease) Hypersomnia Insomnia, persistent Obstructive sleep apnea of adult Post-menopausal Snoring Past Surgical History (Last Reviewed 09/06/22 @ 08:42 by Jabari Robledo MD) History of cholecystectomy History of colonoscopy History of esophagogastroduodenoscopy (EGD) History of hernia repair History of tonsillectomy History of tubal ligation (~1996) S/P repair of paraesophageal hernia Status post endovenous radiofrequency ablation of saphenous vein Visit Care Team Role Provider Type Roger Pyane MD Family Provider Physician Primary Care Provider Specialty: Family Practice Address: [address] [place] [address] Email: [email or web address] Kristyn Galeana PA-C Attending Provider Advanced Clearing Tub Worker Referring Provider Specialty: Medical Wound Care Address: [address] [place] [address], [facility] Email: [email or web address] Physical Therapy Initial Evaluation PT-OP-A Visit Information Start: 01/27/23 12:34 Freq: Status: Active Protocol: Document 01/27/23 12:00 DCW (Rec: 01/27/23 12:40 DC [id number]) Out-Patient Physical Therapy Visit Information Visit Information Visit Type Initial Evaluation Visit Start Time 12:00 Visit Stop Time 12:30 Total Visit Minutes 30 Visit Number 1 Number of CLUB CONCIERGE Visits 0 Evaluation Information Evaluation Date 01/27/23 PT-OP-B Current Condition Start: 01/27/23 12:34 Freq: Status: Active Protocol: Document 01/27/23 12:00 DCW (Rec: 01/27/23 12:40 DCW [id number]) Current Condition History of Current Condition Onset Date One month history Current Complaints Position-dependent dizziness History of Current Condition Pt is a 72 year old female complaining of a one month history of motion-induced vertigos. Pt reports episodes last a varying length of time depending on what she is doing , but symptoms largely stop with pt stops moving her head. Symptoms are provoked by positional changes. Pt denies recent hearing changes, tinnitus, diplopia, dysarthria , discoordination, or decreased mentation/ consciousness. Pt reports symptoms are waxing/waning in nature. Pt denies hx of HTN, hyperlipidemia, diabetes, arrhythmia, head trauma, seizure, migraines, back/neck problems, CVA, anxiety/panic disorders, depression, or excessive smoking or drinking. Pt was seen by her PCP ~3 weeks ago, and per visit notes , PCP saw very strong nystagmus with right Ginette- Hallpike. Treatment Goals Patient/Caregiver Goals eliminate vertigo PT-OP-C Subjective Start: 01/27/23 12:34 Freq: Status: Active Protocol: Document 01/27/23 12:00 DCW (Rec: 01/27/23 12:40 DCW [id number]) OP-PT Subjective Patient Comments Patient Comments The first day was really bad, ended up with nausea and vomiting whenever I tried to move, I just ended up sitting in a chair all day. When I found a good position to stay in, I felt pretty normal. PT-OP-O Vestibular Start: 01/27/23 12:34 Freq: Status: Active Protocol: Document 01/27/23 12:00 DCW (Rec: 01/27/23 12:40 DCW [id number]) Vestibular Assessment Auditory Tests Davidson Test Lateralizes right Rinne Test Negative Air Conduction Results Equal Visual Testing Smooth Pursuits Horizontal WNL Smooth Pursuits Vertical WNL Saccades Horizontal WNL Heave Test Negative Thrust Head Negative Positional Testing Ches[place]-Hallpike Negative Left,Negative Right Rolling Test Negative Left,Negative Right PT-OP-Q Treatments Start: 01/27/23 12:34 Freq: Status: Active Protocol: Document 01/27/23 12:00 DCW (Rec: 01/27/23 12:40 DCW [id number]) Canalithic Repositioning BPPV Treatment Bandar Affected Canal(s) Right posterior? Reps x1 Comments Modified Bandar PT-OP-T Assessment and Plan Start: 01/27/23 12:34 Freq: Status: Active Protocol: Document 01/27/23 12:00 DCW (Rec: 01/27/23 12:44 DCW [id number]) Physical Therapy Assessment Rehab Potential Rehabilitation Potential Good Evaluation Complexity Number of Personal Factors/Comorbidities 0 Number of Body Systems Impaired 1-2 Clinical Presentation at Evaluation Unstable Impairments Impairments Balance,Functional Activities, Functional Mobility,Vestibular Goals One Impairment Pt experiences vertigo with positional changes Short Term Goal (STG) Pt to report no symptoms with any bed mobility over the course of a full week. STG Duration 02/27/23 Assessment Summary Assessment Pt subjective symptoms strongly suggestive of BPPV. During recent visit with referring physician, pt was seen to have nystagmus during right Ginette-Hallpike. During vestibular evaluation today, pt was largely asymptomatic, despite reporting symptoms as recently as this morning. Due to the waxing and waning nature of BPPV, it is not uncommon for negative testing in clinic despite likely active BPPV. Due to pt's subjective history and a visit note stating a positive right Cheshire-Hallpike, a right-sided modified Bandar maneuver was performed. Pt was educated on BPPV, expectations for treatment, possible recurrence (BPPV has a ~50% recurrence rate in the five years following treatment), and post -Bandar restrictions. Pt to return in ~1 week for a follow -up appointment, and intermittently afterward as indicated for treatment of BPPV. Physical Therapy Plan Frequency and Duration Frequency of Treatment 1-2x/week Plan of Care Start Date 01/27/23 Plan of Care End Date 02/27/23 Therapeutic Interventions Therapeutic Interventions Balance Training,Canalithic Repositioning,Home Exercise Program,Patient/Caregiver Education,Self-Care/Home Management,Vestibular Rehabilitation Next Visit Focus/Plan Next Note Type Treatment Note Next Visit Plan Positional testing, CRM as indicated
--- NOTE | 2023-01-27 12:45 | PT.OPPOC ---
Physical, Occupational & Speech Therapy At [facility] Current Diagnoses Pain in right shoulder (01/27/23) Pain in right hip (01/27/23) Pain in right knee (01/27/23) Cervicalgia (01/27/23) Dizziness and giddiness (01/27/23) History of falling (01/27/23) Visit Care Team Role Provider Type Roger Payne MD Family Provider Physician Primary Care Provider Specialty: Family Practice Address: [address] [place] [address], [facility] Email: [email or web address] Kristyn Galeana PA-C Attending Provider Advanced Supervisor Multifocal Lens Referring Provider Specialty: Medical Wound Care Address: [address] [place] [address], [facility] Email: [email or web address] Plan Of Care PT-OP-T Assessment and Plan Start: 01/27/23 12:34 Freq: Status: Active Protocol: Document 01/27/23 12:00 DCW (Rec: 01/27/23 12:44 DCW [id number]) Physical Therapy Assessment Rehab Potential Rehabilitation Potential Good Evaluation Complexity Number of Personal Factors/Comorbidities 0 Number of Body Systems Impaired 1-2 Clinical Presentation at Evaluation Unstable Impairments Impairments Balance,Functional Activities, Functional Mobility,Vestibular Goals One Impairment Pt experiences vertigo with positional changes Short Term Goal (STG) Pt to report no symptoms with any bed mobility over the course of a full week. STG Duration 02/27/23 Assessment Summary Assessment Pt subjective symptoms strongly suggestive of BPPV. During recent visit with referring physician, pt was seen to have nystagmus during right Sedan-Hallpike. During vestibular evaluation today, pt was largely asymptomatic, despite reporting symptoms as recently as this morning. Due to the waxing and waning nature of BPPV, it is not uncommon for negative testing in clinic despite likely active BPPV. Due to pt's subjective history and a visit note stating a positive right Sedan-Hallpike, a right-sided modified Bandar maneuver was performed. Pt was educated on BPPV, expectations for treatment, possible recurrence (BPPV has a ~50% recurrence rate in the five years following treatment), and post -Bandar restrictions. Pt to return in ~1 week for a follow -up appointment, and intermittently afterward as indicated for treatment of BPPV. Physical Therapy Plan Frequency and Duration Frequency of Treatment 1-2x/week Plan of Care Start Date 01/27/23 Plan of Care End Date 02/27/23 Therapeutic Interventions Therapeutic Interventions Balance Training,Canalithic Repositioning,Home Exercise Program,Patient/Caregiver Education,Self-Care/Home Management,Vestibular Rehabilitation Next Visit Focus/Plan Next Note Type Treatment Note Next Visit Plan Positional testing, CRM as indicated Plan of Care Dates Plan of Care Start Date 01/27/23 Plan of Care End Date 02/27/23 Electronically Signed by: Akash Gottlieb, PT 01/27/23 6958 If you are in agreement with this Plan of Care, please return a signed and dated copy. I have reviewed this Plan of Care and certify that the skilled therapy services above are required to meet the patient?s needs. Physician Signature Date Printed Name and Credentials Clinical Instructor Signature Printed Name and Credentials
--- NOTE | 2023-02-11 10:17 | PT.OTN ---
Current Diagnoses Pain in right shoulder (02/11/23) Pain in right hip (02/11/23) Pain in right knee (02/11/23) Cervicalgia (02/11/23) Dizziness and giddiness (02/11/23) History of falling (02/11/23) Physical Therapy Treatment Note PT-OP-A Visit Information Start: 01/27/23 12:34 Freq: Status: Active Protocol: Document 02/11/23 09:50 DCW (Rec: 02/11/23 10:17 DCW [id number]) Out-Patient Physical Therapy Visit Information Visit Information Visit Type Treatment Note Visit Start Time 09:50 Visit Stop Time 10:10 Total Visit Minutes 20 Visit Number 2 Number of VACUUM DRIER TENDER Visits 0 Evaluation Information Evaluation Date 01/27/23 PT-OP-B Current Condition Start: 01/27/23 12:34 Freq: Status: Active Protocol: Document 01/27/23 12:00 DCW (Rec: 01/27/23 12:40 DCW [id number]) Current Condition History of Current Condition Onset Date One month history Current Complaints Position-dependent dizziness History of Current Condition Pt is a 72 year old female complaining of a one month history of motion-induced vertigos. Pt reports episodes last a varying length of time depending on what she is doing , but symptoms largely stop with pt stops moving her head. Symptoms are provoked by positional changes. Pt denies recent hearing changes, tinnitus, diplopia, dysarthria , discoordination, or decreased mentation/ consciousness. Pt reports symptoms are waxing/waning in nature. Pt denies hx of HTN, hyperlipidemia, diabetes, arrhythmia, head trauma, seizure, migraines, back/neck problems, CVA, anxiety/panic disorders, depression, or excessive smoking or drinking. Pt was seen by her PCP ~3 weeks ago, and per visit notes , PCP saw very strong nystagmus with right Ginette- Hallpike. Treatment Goals Patient/Caregiver Goals eliminate vertigo PT-OP-C Subjective Start: 01/27/23 12:34 Freq: Status: Active Protocol: Document 02/11/23 09:50 DCW (Rec: 02/11/23 10:17 DCW [id number]) OP-PT Subjective Patient Comments Patient Comments The symptoms are very much less than they used to be, it doesn't really bother me when I'm up standing. Theres still a little bit when I bend down, but it's more of a lightheadedness. PT-OP-O Vestibular Start: 01/27/23 12:34 Freq: Status: Active Protocol: Document 01/27/23 12:00 DCW (Rec: 01/27/23 12:40 DCW [id number]) Vestibular Assessment Auditory Tests Davidson Test Lateralizes right Rinne Test Negative Air Conduction Results Equal Visual Testing Smooth Pursuits Horizontal WNL Smooth Pursuits Vertical WNL Saccades Horizontal WNL Heave Test Negative Thrust Head Negative Positional Testing Ginette-Hallpike Negative Left,Negative Right Rolling Test Negative Left,Negative Right PT-OP-Q Treatments Start: 01/27/23 12:34 Freq: Status: Active Protocol: Document 02/11/23 09:50 DCW (Rec: 02/11/23 10:17 DCW [id number]) Self-Care/Home Management Treatment Education Other Education Review of post-Bandar precautions, potential exercises to challenge balance Canalithic Repositioning BPPV Treatment Bandar Affected Canal(s) Right posterior? Reps x1 Comments Modified Bandar PT-OP-T Assessment and Plan Start: 01/27/23 12:34 Freq: Status: Active Protocol: Document 02/11/23 09:50 DCW (Rec: 02/11/23 10:17 DC [id number]) Physical Therapy Assessment Impairments Impairments Balance,Functional Activities, Functional Mobility,Vestibular Goals One Impairment Pt experiences vertigo with positional changes Short Term Goal (STG) Pt to report no symptoms with any bed mobility over the course of a full week. STG Duration 02/27/23 Assessment Summary Assessment Pt again fairly asymptomatic during testing today, still performed right-sided modified Bandar, as it seemed to improve subjective symptoms following last attempt. Pt to return next week, if vestibular symptoms continue to be controlled, pt will likely benefit from addressing complaints of right-side pain due to prior fall, which was also included on initial referral. Physical Therapy Plan Frequency and Duration Frequency of Treatment 1-2x/week Plan of Care Start Date 01/27/23 Plan of Care End Date 02/27/23 Therapeutic Interventions Therapeutic Interventions Balance Training,Canalithic Repositioning,Home Exercise Program,Patient/Caregiver Education,Self-Care/Home Management,Vestibular Rehabilitation Next Visit Focus/Plan Next Note Type Treatment Note Next Visit Plan Positional testing, CRM as indicated
--- NOTE | 2023-02-16 15:02 | PT.OTN ---
Current Diagnoses Pain in right shoulder (02/16/23) Pain in right hip (02/16/23) Pain in right knee (02/16/23) Cervicalgia (02/16/23) Dizziness and giddiness (02/16/23) History of falling (02/16/23) Physical Therapy Treatment Note PT-OP-A Visit Information Start: 01/27/23 12:34 Freq: Status: Active Protocol: Document 02/16/23 14:00 DCW (Rec: 02/16/23 14:49 DCW [id number]) Out-Patient Physical Therapy Visit Information Visit Information Visit Type Progress Note Visit Start Time 14:00 Visit Stop Time 14:45 Total Visit Minutes 45 Visit Number 3 Number of BAD WORK GATHERER Visits 0 Evaluation Information Evaluation Date 01/27/23 PT-OP-B Current Condition Start: 01/27/23 12:34 Freq: Status: Active Protocol: Document 01/27/23 12:00 DCW (Rec: 01/27/23 12:40 DCW [id number]) Current Condition History of Current Condition Onset Date One month history Current Complaints Position-dependent dizziness History of Current Condition Pt is a 72 year old female complaining of a one month history of motion-induced vertigos. Pt reports episodes last a varying length of time depending on what she is doing , but symptoms largely stop with pt stops moving her head. Symptoms are provoked by positional changes. Pt denies recent hearing changes, tinnitus, diplopia, dysarthria , discoordination, or decreased mentation/ consciousness. Pt reports symptoms are waxing/waning in nature. Pt denies hx of HTN, hyperlipidemia, diabetes, arrhythmia, head trauma, seizure, migraines, back/neck problems, CVA, anxiety/panic disorders, depression, or excessive smoking or drinking. Pt was seen by her PCP ~3 weeks ago, and per visit notes , PCP saw very strong nystagmus with right Ginette- Hallpike. Treatment Goals Patient/Caregiver Goals eliminate vertigo PT-OP-C Subjective Start: 01/27/23 12:34 Freq: Status: Active Protocol: Document 02/16/23 14:00 DCW (Rec: 02/16/23 14:04 DCW [id number]) OP-PT Subjective Patient Comments Patient Comments I was feeling really good, I thought we had it, but Tuesday I woke up with some dizziness . It seems to only really be affecting me first thing in the morning. Patient Reported Progress Improving PT-OP-F Manual Assessment Start: 02/16/23 14:00 Freq: Status: Active Protocol: Document 02/16/23 14:00 DCW (Rec: 02/16/23 14:33 DCW [id number]) Manual Assessments Soft Tissue Assessment Soft Tissue Mobility Assessment Moderate tone with tenderness to palpation 2/4: Pain with wincing R>L upper traps PT-OP-K Range of Motion Start: 02/16/23 14:00 Freq: Status: Active Protocol: Document 02/16/23 14:00 DCW (Rec: 02/16/23 14:33 DCW [id number]) Cervical Spine Range of Motion Cervical Spine Active Degrees Testing Position Sitting Flexion 70 Extension 40 Rotation Left 65 Rotation Right 48 Lateral Flexion Left 35 Lateral Flexion Right 20 PT-OP-L Special Tests Start: 02/16/23 14:00 Freq: Status: Active Protocol: Document 02/16/23 14:00 DCW (Rec: 02/16/23 14:33 DCW [id number]) Special Tests Cervical Spine Special Tests Spurling's Test Test Results Negative Passive Neck Flexion Test Results Negative Slump Test Results Negative Foraminal Compression Test Results Negative Shoulder Special Tests Speed's Biceps Test Results Positive R Passive ER Rotator Cuff Test Results Negative Lift-Off Rotator Cuff Test Results Negative Germain Paul Impingement Test Results Negative Empty Can Test Results Negative Drop Arm Rotator Cuff Test Results Negative Belly Press Test Results Negative Knee Special Tests Varus- 25 Degrees Test Results Negative Valgus- 25 Degrees Test Results Negative Posterior Draw Test Results Negative Patellar Grind Test Test Results Negative Patella Tap Test Results Negative Angie's Test Results Negative Dottie Test Test Results Negative [place] Chondromalacia Test Results Negative Rodas Test Test Results Negative Anterior Draw Test Results Negative PT-OP-M Strength Start: 02/16/23 14:00 Freq: Status: Active Protocol: Document 02/16/23 14:00 DCW (Rec: 02/16/23 14:33 DCW [id number]) Shoulder Strength Shoulder Manual Muscle Testing Right Flexion 4 Good Extension 5 Normal Abduction (C5) 5 Normal External Rotation 5 Normal Internal Rotation 5 Normal Left Flexion 5 Normal Extension 5 Normal Abduction (C5) 5 Normal External Rotation 5 Normal Internal Rotation 5 Normal Hip Strength Hip Manual Muscle Testing Right Flexion (L2) 5 Normal Abduction 5 Normal Adduction 5 Normal External Rotation 5 Normal Internal Rotation 5 Normal Left Flexion (L2) 5 Normal Abduction 5 Normal Adduction 5 Normal External Rotation 5 Normal Internal Rotation 5 Normal Knee Strength Knee Manual Muscle Testing Right Flexion (S2) 4 Good Extension (L3) 5 Normal Left Flexion (S2) 5 Normal Extension (L3) 5 Normal PT-OP-O Vestibular Start: 01/27/23 12:34 Freq: Status: Active Protocol: Document 02/16/23 14:00 DCW (Rec: 02/16/23 14:33 DCW [id number]) Vestibular Assessment Positional Testing [place]-Hallpike Negative Left,Negative Right PT-OP-Q Treatments Start: 01/27/23 12:34 Freq: Status: Active Protocol: Document 02/16/23 14:00 DCW (Rec: 02/16/23 14:49 DCW [id number]) Therapeutic Exercises Sitting Exercises Piriformis Sitting Exercise Name Piriformis - seated figure-4 Side bilateral Upper Trap Sitting Exercise Name Upper Trap stretch Side bilateral Canalithic Repositioning BPPV Treatment Bandar Affected Canal(s) Right posterior? Reps x1 Comments Modified Bandar PT-OP-T Assessment and Plan Start: 01/27/23 12:34 Freq: Status: Active Protocol: Document 02/16/23 14:00 DCW (Rec: 02/16/23 15:02 DCW [id number]) Physical Therapy Assessment Impairments Impairments Balance,Functional Activities, Functional Mobility,Vestibular Goals Two Impairment Restricted right cervical rotation (48?) Prison Goal (LTG) Pt to demonstrate at least 12? increased cervical rotation to 60? in order to improve ability to turn head while driving. LTG Duration 04/18/23 One Impairment Pt experiences vertigo with positional changes Short Term Goal (STG) Pt to report no symptoms with any bed mobility over the course of a full week. STG Duration 02/27/23 Assessment Summary Assessment Pt continues to present with negative positional testing. Performed one modified Bandar as pt subjective reports less symptomatic following CRM. Additionally addressed other complaints of right-sided pain following pt's fall, all of which were put off from initial evaluation in order to address vestibular concerns. Pt does appear to have some soft-tissue tightness, likely a secondary response to her recent fall. Pt especially has high tone in right vs left upper trap and right piriformis, both of which could be responsible for the majority of her pain she is experiencing at night. Pt also exhibits some signs and symptoms consistent with potential right bicipital tendonitis. Will work on flexibility, STM, and general strengthening in order to improve pain levels and overall functional mobility. Physical Therapy Plan Frequency and Duration Frequency of Treatment 1-2x/week Plan of Care Start Date 02/16/23 Plan of Care End Date 04/18/23 Therapeutic Interventions Therapeutic Interventions Balance Training,Canalithic Repositioning,Home Exercise Program,Patient/Caregiver Education,Self-Care/Home Management,Vestibular Rehabilitation Next Visit Focus/Plan Next Note Type Treatment Note Next Visit Plan Positional testing, CRM as indicated
--- NOTE | 2023-02-16 15:02 | PT.OPPOC ---
Physical, Occupational & Speech Therapy At [facility] Current Diagnoses Pain in right shoulder (02/16/23) Pain in right hip (02/16/23) Pain in right knee (02/16/23) Cervicalgia (02/16/23) Dizziness and giddiness (02/16/23) History of falling (02/16/23) Visit Care Team Role Provider Type Roger Payne MD Family Provider Physician Primary Care Provider Specialty: Family Practice Address: [address] [place] [address], [facility] Email: [email or web address] Kristyn Galeana PA-C Attending Provider Advanced Plywood Matcher Referring Provider Specialty: Medical Wound Care Address: [address] [place] [address], [facility] Email: [email or web address] Plan Of Care PT-OP-T Assessment and Plan Start: 01/27/23 12:34 Freq: Status: Active Protocol: Document 02/16/23 14:00 DCW (Rec: 02/16/23 15:02 DCW [id number]) Physical Therapy Assessment Impairments Impairments Balance,Functional Activities, Functional Mobility,Vestibular Goals Two Impairment Restricted right cervical rotation (48?) Chcf Goal (LTG) Pt to demonstrate at least 12? increased cervical rotation to 60? in order to improve ability to turn head while driving. LTG Duration 04/18/23 One Impairment Pt experiences vertigo with positional changes Short Term Goal (STG) Pt to report no symptoms with any bed mobility over the course of a full week. STG Duration 02/27/23 Assessment Summary Assessment Pt continues to present with negative positional testing. Performed one modified Bandar as pt subjective reports less symptomatic following CRM. Additionally addressed other complaints of right-sided pain following pt's fall, all of which were put off from initial evaluation in order to address vestibular concerns. Pt does appear to have some soft-tissue tightness, likely a secondary response to her recent fall. Pt especially has high tone in right vs left upper trap and right piriformis, both of which could be responsible for the majority of her pain she is experiencing at night. Pt also exhibits some signs and symptoms consistent with potential right bicipital tendonitis. Will work on flexibility, STM, and general strengthening in order to improve pain levels and overall functional mobility. Physical Therapy Plan Frequency and Duration Frequency of Treatment 1-2x/week Plan of Care Start Date 02/16/23 Plan of Care End Date 04/18/23 Therapeutic Interventions Therapeutic Interventions Balance Training,Canalithic Repositioning,Home Exercise Program,Patient/Caregiver Education,Self-Care/Home Management,Vestibular Rehabilitation Next Visit Focus/Plan Next Note Type Treatment Note Next Visit Plan Positional testing, CRM as indicated Plan of Care Dates Plan of Care Start Date 02/16/23 Plan of Care End Date 04/18/23 Electronically Signed by: Akash Gottlieb, PT 02/16/23 8860 If you are in agreement with this Plan of Care, please return a signed and dated copy. I have reviewed this Plan of Care and certify that the skilled therapy services above are required to meet the patient?s needs. Physician Signature Date Printed Name and Credentials Clinical Instructor Signature Printed Name and Credentials
--- NOTE | 2023-03-09 15:53 | PT.OTN ---
Current Diagnoses Pain in right shoulder (03/09/23) Pain in right hip (03/09/23) Pain in right knee (03/09/23) Cervicalgia (03/09/23) Dizziness and giddiness (03/09/23) History of falling (03/09/23) Physical Therapy Treatment Note PT-OP-A Visit Information Start: 01/27/23 12:34 Freq: Status: Active Protocol: Document 03/09/23 15:15 DCW (Rec: 03/09/23 15:53 DCW [id number]) Out-Patient Physical Therapy Visit Information Visit Information Visit Type Treatment Note Visit Start Time 15:15 Visit Stop Time 15:45 Total Visit Minutes 30 Visit Number 4 Number of MANAGER HELPDESK Visits 0 Evaluation Information Evaluation Date 01/27/23 PT-OP-B Current Condition Start: 01/27/23 12:34 Freq: Status: Active Protocol: Document 01/27/23 12:00 DCW (Rec: 01/27/23 12:40 DCW [id number]) Current Condition History of Current Condition Onset Date One month history Current Complaints Position-dependent dizziness History of Current Condition Pt is a 72 year old female complaining of a one month history of motion-induced vertigos. Pt reports episodes last a varying length of time depending on what she is doing , but symptoms largely stop with pt stops moving her head. Symptoms are provoked by positional changes. Pt denies recent hearing changes, tinnitus, diplopia, dysarthria , discoordination, or decreased mentation/ consciousness. Pt reports symptoms are waxing/waning in nature. Pt denies hx of HTN, hyperlipidemia, diabetes, arrhythmia, head trauma, seizure, migraines, back/neck problems, CVA, anxiety/panic disorders, depression, or excessive smoking or drinking. Pt was seen by her PCP ~3 weeks ago, and per visit notes , PCP saw very strong nystagmus with right Ginette- Hallpike. Treatment Goals Patient/Caregiver Goals eliminate vertigo PT-OP-C Subjective Start: 01/27/23 12:34 Freq: Status: Active Protocol: Document 03/09/23 15:15 DCW (Rec: 03/09/23 15:53 DCW [id number]) OP-PT Subjective Patient Comments Patient Comments Pt denies any lingering vertigo symptoms, and the little bit of the neck stretching I've been able to do has really helped, I'm able to sleep without pain now. Notes the shoulder still gives her some trouble. PT-OP-F Manual Assessment Start: 02/16/23 14:00 Freq: Status: Active Protocol: Document 02/16/23 14:00 DCW (Rec: 02/16/23 14:33 DCW [id number]) Manual Assessments Soft Tissue Assessment Soft Tissue Mobility Assessment Moderate tone with tenderness to palpation 2/4: Pain with wincing R>L upper traps PT-OP-K Range of Motion Start: 02/16/23 14:00 Freq: Status: Active Protocol: Document 02/16/23 14:00 DCW (Rec: 02/16/23 14:33 DCW [id number]) Cervical Spine Range of Motion Cervical Spine Active Degrees Testing Position Sitting Flexion 70 Extension 40 Rotation Left 65 Rotation Right 48 Lateral Flexion Left 35 Lateral Flexion Right 20 PT-OP-L Special Tests Start: 02/16/23 14:00 Freq: Status: Active Protocol: Document 02/16/23 14:00 DCW (Rec: 02/16/23 14:33 DCW [id number]) Special Tests Cervical Spine Special Tests Spurling's Test Test Results Negative Passive Neck Flexion Test Results Negative Slump Test Results Negative Foraminal Compression Test Results Negative Shoulder Special Tests Speed's Biceps Test Results Positive R Passive ER Rotator Cuff Test Results Negative Lift-Off Rotator Cuff Test Results Negative Germain Paul Impingement Test Results Negative Empty Can Test Results Negative Drop Arm Rotator Cuff Test Results Negative Belly Press Test Results Negative Knee Special Tests Varus- 25 Degrees Test Results Negative Valgus- 25 Degrees Test Results Negative Posterior Draw Test Results Negative Patellar Grind Test Test Results Negative Patella Tap Test Results Negative Angie's Test Results Negative Dottie Test Test Results Negative [place] Chondromalacia Test Results Negative Rodas Test Test Results Negative Anterior Draw Test Results Negative PT-OP-M Strength Start: 02/16/23 14:00 Freq: Status: Active Protocol: Document 02/16/23 14:00 DCW (Rec: 02/16/23 14:33 DCW [id number]) Shoulder Strength Shoulder Manual Muscle Testing Right Flexion 4 Good Extension 5 Normal Abduction (C5) 5 Normal External Rotation 5 Normal Internal Rotation 5 Normal Left Flexion 5 Normal Extension 5 Normal Abduction (C5) 5 Normal External Rotation 5 Normal Internal Rotation 5 Normal Hip Strength Hip Manual Muscle Testing Right Flexion (L2) 5 Normal Abduction 5 Normal Adduction 5 Normal External Rotation 5 Normal Internal Rotation 5 Normal Left Flexion (L2) 5 Normal Abduction 5 Normal Adduction 5 Normal External Rotation 5 Normal Internal Rotation 5 Normal Knee Strength Knee Manual Muscle Testing Right Flexion (S2) 4 Good Extension (L3) 5 Normal Left Flexion (S2) 5 Normal Extension (L3) 5 Normal PT-OP-O Vestibular Start: 01/27/23 12:34 Freq: Status: Active Protocol: Document 02/16/23 14:00 DCW (Rec: 02/16/23 14:33 DCW [id number]) Vestibular Assessment Positional Testing Ginette-Hallpike Negative Left,Negative Right PT-OP-Q Treatments Start: 01/27/23 12:34 Freq: Status: Active Protocol: Document 03/09/23 15:15 DCW (Rec: 03/09/23 15:53 DCW [id number]) Therapeutic Exercises Sitting Exercises Sup/Pronation Sitting Exercise Name Supination/Pronation Side right Resistance 5# Biceps Curl Sitting Exercise Name Reverse Curl Side bilateral Resistance 5# Manual Therapy Treatment Soft Tissue Mobilization Biceps Tendon Body Location R LH Biceps Mobilization Type Cross-Friction Intensity/Depth Superficial Body Position Sitting Taping Biceps Body Location R Biceps Treatment Focus Y-strip over bicipital groove Type of Tape Kinesio Tape PT-OP-T Assessment and Plan Start: 01/27/23 12:34 Freq: Status: Active Protocol: Document 03/09/23 15:15 DCW (Rec: 03/09/23 15:53 DCW [id number]) Physical Therapy Assessment Impairments Impairments Balance,Functional Activities, Functional Mobility,Pain,ROM, Strength,Tone,Vestibular Goals Two Impairment Restricted right cervical rotation (48?) Correction Goal (LTG) Pt to demonstrate at least 12? increased cervical rotation to 60? in order to improve ability to turn head while driving. LTG Duration 04/18/23 One Impairment Pt experiences vertigo with positional changes Short Term Goal (STG) Pt to report no symptoms with any bed mobility over the course of a full week. STG Duration 02/27/23 Assessment Summary Assessment Making very good progress in all areas. Biggest lingering symptoms is anterior right shoulder pain. Trial of K-tape today to help decrease force through bicipital groove. Addition of gentle arm strengthening to HEP. Physical Therapy Plan Frequency and Duration Frequency of Treatment 1-2x/week Plan of Care Start Date 02/16/23 Plan of Care End Date 04/18/23 Therapeutic Interventions Therapeutic Interventions Balance Training,Canalithic Repositioning,Home Exercise Program,Manual Therapy,Patient /Caregiver Education,Self-Care /Home Management,Soft Tissue Mobilization,Taping,Vestibular Rehabilitation Next Visit Focus/Plan Next Note Type Treatment Note Next Visit Plan Positional testing, CRM as indicated, STM and shoulder mobility
--- NOTE | 2023-03-17 15:57 | PT.OTN ---
Current Diagnoses Pain in right shoulder (03/17/23) Pain in right hip (03/17/23) Pain in right knee (03/17/23) Cervicalgia (03/17/23) Dizziness and giddiness (03/17/23) History of falling (03/17/23) Physical Therapy Treatment Note PT-OP-A Visit Information Start: 01/27/23 12:34 Freq: Status: Active Protocol: Document 03/17/23 15:15 DCW (Rec: 03/17/23 15:57 DCW [id number]) Out-Patient Physical Therapy Visit Information Visit Information Visit Type Treatment Note Visit Start Time 15:15 Visit Stop Time 15:45 Total Visit Minutes 30 Visit Number 5 Number of ORE CHARGER Visits 0 Evaluation Information Evaluation Date 01/27/23 PT-OP-B Current Condition Start: 01/27/23 12:34 Freq: Status: Active Protocol: Document 01/27/23 12:00 DCW (Rec: 01/27/23 12:40 DCW [id number]) Current Condition History of Current Condition Onset Date One month history Current Complaints Position-dependent dizziness History of Current Condition Pt is a 72 year old female complaining of a one month history of motion-induced vertigos. Pt reports episodes last a varying length of time depending on what she is doing , but symptoms largely stop with pt stops moving her head. Symptoms are provoked by positional changes. Pt denies recent hearing changes, tinnitus, diplopia, dysarthria , discoordination, or decreased mentation/ consciousness. Pt reports symptoms are waxing/waning in nature. Pt denies hx of HTN, hyperlipidemia, diabetes, arrhythmia, head trauma, seizure, migraines, back/neck problems, CVA, anxiety/panic disorders, depression, or excessive smoking or drinking. Pt was seen by her PCP ~3 weeks ago, and per visit notes , PCP saw very strong nystagmus with right Ginette- Hallpike. Treatment Goals Patient/Caregiver Goals eliminate vertigo PT-OP-C Subjective Start: 01/27/23 12:34 Freq: Status: Active Protocol: Document 03/17/23 15:15 DCW (Rec: 03/17/23 15:57 DCW [id number]) OP-PT Subjective Patient Comments Patient Comments The hip is great, I can sleep on my side no problem. The knee, I've tweaked it a few times, so I think it'd be okay otherwise. PT-OP-F Manual Assessment Start: 02/16/23 14:00 Freq: Status: Active Protocol: Document 02/16/23 14:00 DCW (Rec: 02/16/23 14:33 DCW [id number]) Manual Assessments Soft Tissue Assessment Soft Tissue Mobility Assessment Moderate tone with tenderness to palpation 2/4: Pain with wincing R>L upper traps PT-OP-K Range of Motion Start: 02/16/23 14:00 Freq: Status: Active Protocol: Document 02/16/23 14:00 DCW (Rec: 02/16/23 14:33 DCW [id number]) Cervical Spine Range of Motion Cervical Spine Active Degrees Testing Position Sitting Flexion 70 Extension 40 Rotation Left 65 Rotation Right 48 Lateral Flexion Left 35 Lateral Flexion Right 20 PT-OP-L Special Tests Start: 02/16/23 14:00 Freq: Status: Active Protocol: Document 02/16/23 14:00 DCW (Rec: 02/16/23 14:33 [facility] [id number]) Special Tests Cervical Spine Special Tests Spurling's Test Test Results Negative Passive Neck Flexion Test Results Negative Slump Test Results Negative Foraminal Compression Test Results Negative Shoulder Special Tests Speed's Biceps Test Results Positive R Passive ER Rotator Cuff Test Results Negative Lift-Off Rotator Cuff Test Results Negative Germain Paul Impingement Test Results Negative Empty Can Test Results Negative Drop Arm Rotator Cuff Test Results Negative Belly Press Test Results Negative Knee Special Tests Varus- 25 Degrees Test Results Negative Valgus- 25 Degrees Test Results Negative Posterior Draw Test Results Negative Patellar Grind Test Test Results Negative Patella Tap Test Results Negative Angie's Test Results Negative Dottie Test Test Results Negative [place] Chondromalacia Test Results Negative Rodas Test Test Results Negative Anterior Draw Test Results Negative PT-OP-M Strength Start: 02/16/23 14:00 Freq: Status: Active Protocol: Document 02/16/23 14:00 DCW (Rec: 02/16/23 14:33 DCW [id number]) Shoulder Strength Shoulder Manual Muscle Testing Right Flexion 4 Good Extension 5 Normal Abduction (C5) 5 Normal External Rotation 5 Normal Internal Rotation 5 Normal Left Flexion 5 Normal Extension 5 Normal Abduction (C5) 5 Normal External Rotation 5 Normal Internal Rotation 5 Normal Hip Strength Hip Manual Muscle Testing Right Flexion (L2) 5 Normal Abduction 5 Normal Adduction 5 Normal External Rotation 5 Normal Internal Rotation 5 Normal Left Flexion (L2) 5 Normal Abduction 5 Normal Adduction 5 Normal External Rotation 5 Normal Internal Rotation 5 Normal Knee Strength Knee Manual Muscle Testing Right Flexion (S2) 4 Good Extension (L3) 5 Normal Left Flexion (S2) 5 Normal Extension (L3) 5 Normal PT-OP-O Vestibular Start: 01/27/23 12:34 Freq: Status: Active Protocol: Document 02/16/23 14:00 DCW (Rec: 02/16/23 14:33 DCW [id number]) Vestibular Assessment Positional Testing [place]-Hallpike Negative Left,Negative Right PT-OP-Q Treatments Start: 01/27/23 12:34 Freq: Status: Active Protocol: Document 03/17/23 15:15 DCW (Rec: 03/17/23 15:57 DCW [id number]) Manual Therapy Treatment Soft Tissue Mobilization Parascapular muscles Body Location R supraspinatus, infraspinatus , [place] Mobilization Type Strumming,Sustained Pressure Intensity/Depth Moderate Body Position Sitting Biceps Tendon Body Location R LH Biceps Mobilization Type Cross-Friction Intensity/Depth Superficial Body Position Sitting PT-OP-T Assessment and Plan Start: 01/27/23 12:34 Freq: Status: Active Protocol: Document 03/17/23 15:15 DCW (Rec: 03/17/23 15:57 DCW [id number]) Physical Therapy Assessment Impairments Impairments Balance,Functional Activities, Functional Mobility,Pain,ROM, Strength,Tone,Vestibular Goals Two Impairment Restricted right cervical rotation (48?) Detention Goal (LTG) Pt to demonstrate at least 12? increased cervical rotation to 60? in order to improve ability to turn head while driving. LTG Duration 04/18/23 One Impairment Pt experiences vertigo with positional changes Short Term Goal (STG) Pt to report no symptoms with any bed mobility over the course of a full week. STG Duration 02/27/23 Assessment Summary Assessment Pt feels comfortable at this time with HEP, knows that she feels much better if she is able to do her stretching and strengthening. Feels positive regarding discharge at this time, understands that she will require a new referral in order to return in the future if symptoms return. Physical Therapy Plan Frequency and Duration Frequency of Treatment 1-2x/week Plan of Care Start Date 02/16/23 Plan of Care End Date 04/18/23 Therapeutic Interventions Therapeutic Interventions Balance Training,Canalithic Repositioning,Home Exercise Program,Manual Therapy,Patient /Caregiver Education,Self-Care /Home Management,Soft Tissue Mobilization,Taping,Vestibular Rehabilitation Next Visit Focus/Plan Next Note Type Treatment Note Next Visit Plan Positional testing, CRM as indicated, STM and shoulder mobility
== END 2023-03-22 10:37 | disposition home or self-care (01) ==
LOC: PHYS 15:15
PROVIDERS: Family Provider Family Medicine; PCP Family Medicine; Referring Provider Physician Assistant; Visit Provider Physician Assistant
DX: R42 Dizziness and giddiness (principal); Z91.81 History of falling; M54.2 Cervicalgia; M25.511 Pain in right shoulder; M25.561 Pain in right knee; M25.551 Pain in right hip
CPT/HCPCS: 95992; 97110; 97140; 97161

== ENCOUNTER 2023-05-17 09:36 | Outpatient (RCR) | payer MEDICARE, OTHER, SELFPAY ==
--- NOTE | 2023-05-17 11:56 | PT.OIE ---
Current Diagnoses Pain in left knee (05/17/23) Other symptoms and signs involving the musculoskeletal system (05/17/23) Dizziness and giddiness (05/17/23) Past Medical History (Last Reviewed 09/06/22 @ 08:42 by Jabari Robledo MD) Constipation GERD (gastroesophageal reflux disease) Hypersomnia Insomnia, persistent Obstructive sleep apnea of adult Post-menopausal Snoring Past Surgical History (Last Reviewed 09/06/22 @ 08:42 by Jabari Robledo MD) History of cholecystectomy History of colonoscopy History of esophagogastroduodenoscopy (EGD) History of hernia repair History of tonsillectomy History of tubal ligation (~1996) S/P repair of paraesophageal hernia Status post endovenous radiofrequency ablation of saphenous vein Visit Care Team Role Provider Type Roger Payne MD Attending Provider Physician Family Provider Primary Care Provider Referring Provider Specialty: Family Practice Address: [address] [place] [address] Email: [email or web address] Physical Therapy Initial Evaluation PT-OP-A Visit Information Start: 05/17/23 10:21 Freq: Status: Active Protocol: Document 05/17/23 09:45 DCW (Rec: 05/17/23 10:26 DCW [id number]) Out-Patient Physical Therapy Visit Information Visit Information Visit Type Initial Evaluation Visit Start Time 09:45 Visit Stop Time 10:15 Visit Number 1 Number of CORN HUSKER Visits 0 Evaluation Information Evaluation Date 05/17/23 PT-OP-B Current Condition Start: 05/17/23 10:21 Freq: Status: Active Protocol: Document 05/17/23 09:45 DCW (Rec: 05/17/23 10:26 DCW [id number]) Current Condition History of Current Condition Onset Date s/p one month Current Complaints Left knee pain History of Current Condition Pt is a 73 year old female presenting to the clinic with a one month history of left knee pain. Pt was previously treated at this clinic late last year for right knee pain. Pt reports her left knee began bothering her after she was on her knees cleaning, felt a crunch when standing back up. Was bothering her mostly when knee was in a flexed position for too long. However, pt notes that over the past month while waiting for her PT appointment, she has been feeling quite a bit better, and at this time, is no longer really experiencing any symptoms. Curious if there are any additional exercises that she can perform in addition to her prior HEP for her right knee. Also, was previously experiencing some vertigo, however this has resolved with a self-Bandar. PT-OP-C Subjective Start: 05/17/23 10:21 Freq: Status: Active Protocol: Document 05/17/23 09:45 DCW (Rec: 05/17/23 11:52 DCW [id number]) OP-PT Subjective Patient Comments Patient Comments I thought about canceling today, but I wanted to know if there were any more knee exercises I could add. Patient Reported Progress Improving PT-OP-F Manual Assessment Start: 05/17/23 10:21 Freq: Status: Active Protocol: Document 05/17/23 09:45 DCW (Rec: 05/17/23 11:52 DCW [id number]) Manual Assessments Soft Tissue Assessment Soft Tissue Mobility Assessment Mild discomfort with palpation of medial joint line bilateral knees PT-OP-K Range of Motion Start: 05/17/23 10:21 Freq: Status: Active Protocol: Document 05/17/23 09:45 DCW (Rec: 05/17/23 11:52 DCW [id number]) Knee Goniometric Range of Motion Knee Bilateral Knee ROM WFL Yes PT-OP-L Special Tests Start: 05/17/23 10:21 Freq: Status: Active Protocol: Document 05/17/23 09:45 DCW (Rec: 05/17/23 11:52 DCW [id number]) Special Tests Knee Special Tests Varus- 25 Degrees Test Results Negative Valgus- 25 Degrees Test Results Negative Posterior Draw Test Results Negative Patellar Grind Test Test Results Negative Patella Tap Test Results Negative Angie's Test Results Negative Dottie Test Test Results Negative [place] Chondromalacia Test Results Negative Rodas Test Test Results Negative Anterior Draw Test Results Negative PT-OP-M Strength Start: 05/17/23 10:21 Freq: Status: Active Protocol: Document 05/17/23 09:45 DCW (Rec: 05/17/23 11:52 DCW [id number]) Knee Strength Knee Manual Muscle Testing Right Flexion (S2) 4+ Good+ Extension (L3) 4+ Good+ Left Flexion (S2) 4+ Good+ Extension (L3) 4+ Good+ PT-OP-Q Treatments Start: 05/17/23 10:21 Freq: Status: Active Protocol: Document 05/17/23 09:45 DCW (Rec: 05/17/23 10:26 DCW [id number]) Therapeutic Exercises Standing Exercises Sit-Stand Standing Exercise Name Sit-stand Hip Extension Standing Exercise Name Hip Extension Side left Resistance Lv 3 TKE Standing Exercise Name TKE Side left Resistance Lv 3 PT-OP-T Assessment and Plan Start: 05/17/23 10:21 Freq: Status: Active Protocol: Document 05/17/23 09:45 DCW (Rec: 05/17/23 11:56 DCW [id number]) Physical Therapy Assessment Evaluation Complexity Number of Personal Factors/Comorbidities 0 Number of Body Systems Impaired 1-2 Clinical Presentation at Evaluation Stable Assessment Summary Assessment Pt presenting to skilled therapy today largely asymptomatic. No longer experiencing any left knee pain or vestibular complaints. Unable to provoke any symptoms with testing in clinic today. Pt demonstrates good ROM and bilateral knee strength. Reviewed additional HEP exercises (TKE, hip extension, Sit-stand), which pt was able to demonstrate and noted feeling comfortable with. Pt in agreement that there is no indication for need for further skilled therapeutic intervention. Pt will be discharge from physical therapy at this time. Pt understands she will need a new referral in order to return in the future. Physical Therapy Plan Frequency and Duration Frequency of Treatment 1x/Week Plan of Care Start Date 05/17/23 Plan of Care End Date 05/18/23 Discharge Physical Therapy Discharge Comments No further skilled physical therapy indicated at this time . Next Visit Focus/Plan Next Note Type Discharge Summary
--- NOTE | 2023-05-17 11:57 | PT.OPPOC ---
Physical, Occupational & Speech Therapy At [facility] Current Diagnoses Pain in left knee (05/17/23) Other symptoms and signs involving the musculoskeletal system (05/17/23) Dizziness and giddiness (05/17/23) Visit Care Team Role Provider Type Roger Payne MD Attending Provider Physician Family Provider Primary Care Provider Referring Provider Specialty: Family Practice Address: [address] [place] [address], [facility] Email: [email or web address] Plan Of Care PT-OP-T Assessment and Plan Start: 05/17/23 10:21 Freq: Status: Active Protocol: Document 05/17/23 09:45 DCW (Rec: 05/17/23 11:56 DCW [id number]) Physical Therapy Assessment Evaluation Complexity Number of Personal Factors/Comorbidities 0 Number of Body Systems Impaired 1-2 Clinical Presentation at Evaluation Stable Assessment Summary Assessment Pt presenting to skilled therapy today largely asymptomatic. No longer experiencing any left knee pain or vestibular complaints. Unable to provoke any symptoms with testing in clinic today. Pt demonstrates good ROM and bilateral knee strength. Reviewed additional HEP exercises (TKE, hip extension, Sit-stand), which pt was able to demonstrate and noted feeling comfortable with. Pt in agreement that there is no indication for need for further skilled therapeutic intervention. Pt will be discharge from physical therapy at this time. Pt understands she will need a new referral in order to return in the future. Physical Therapy Plan Frequency and Duration Frequency of Treatment 1x/Week Plan of Care Start Date 05/17/23 Plan of Care End Date 05/18/23 Discharge Physical Therapy Discharge Comments No further skilled physical therapy indicated at this time . Next Visit Focus/Plan Next Note Type Discharge Summary Plan of Care Dates Plan of Care Start Date 05/17/23 Plan of Care End Date 05/18/23 Electronically Signed by: Akash Gottlieb, PT 05/17/23 2237 If you are in agreement with this Plan of Care, please return a signed and dated copy. I have reviewed this Plan of Care and certify that the skilled therapy services above are required to meet the patient?s needs. Physician Signature Date Printed Name and Credentials Clinical Instructor Signature Printed Name and Credentials
== END 2023-05-19 10:57 | disposition home or self-care (01) ==
LOC: PHYS 09:36
PROVIDERS: Family Provider Family Medicine; PCP Family Medicine; Referring Provider Family Medicine; Visit Provider Family Medicine
DX: R42 Dizziness and giddiness (principal); M25.562 Pain in left knee; R29.898 Other symptoms and signs involving the musculoskeletal system
CPT/HCPCS: 97110; 97161

== ENCOUNTER → 2023-05-27 07:42 | Outpatient (CLI) | payer MEDICARE, OTHER, SELFPAY ==
[2023-05-27 08:50] LABS: Add Manual Diff / Slide Review NO; Basophils Absolute Auto 100 /uL (0-100); Basophils Percent Auto 0.9 % (0-2); Eosinophils Absolute Auto 100 /uL (0-450); Eosinophils Percent Auto 2.1 % (2-4); Hematocrit 39.8 % (36-46); Hemoglobin 13.3 g/dL (12.0-16.0); Lymphocytes Absolute Auto 1500 /uL (1100-4500); Lymphocytes Percent Auto 26.4 % (25-40); Mean Corpuscular HGB Conc 33.5 % (30-36); Mean Corpuscular Hemoglobin 29.5 PG (26-34); Monocytes Absolute Auto 600 /uL (0-900); Monocytes Percent Auto 10.1 % (3-14); Neutrophils Absolute Auto 3400 /uL (1500-7000); Neutrophils Percent Auto 60.5 % (50-75); Platelet Count 370 X10^3/uL (150-400); Red Blood Cell Count 4.52 X10^6/uL (4.0-5.2); Red Cell Distribution Width 14.9 % (11.6-14.8); White Blood Cell Count 5.6 X10^3/uL (4.5-11.0)
[2023-05-27 08:59] LABS: Alanine Aminotransferase 16 IU/L (<35); Albumin 3.9 g/dL (3.5-5.0); Albumin Globulin Ratio 1.3 (1.0-2.8); Alkaline Phosphatase 70 U/L (38-126); Aspartate Aminotransferase 20 IU/L (14-36); BUN Creatinine Ratio 23.1 (6-22); Bilirubin Total 0.7 mg/dL (0.2-1.3); Blood Urea Nitrogen 18 mg/dL (7-17); Calcium 9.2 mg/dL (8.4-10.2); Carbon Dioxide 25 mmol/L (22-32); Chloride 108 mmol/L (98-107); Estimated Glomerular Filt Rate > 60 mL/min (>60); Globulin 2.9 g/dL (1.7-4.1); Glucose 98 mg/dL (80-110); HEMOLYSIS < 15 (0-50); Potassium 4.4 mmol/L (3.4-5.1); Sodium 140 mmol/L (137-145); Total Protein 6.8 g/dL (6.3-8.2)
[2023-05-27 09:27] LABS: TSH w/ Reflex to FT4 0.86 uIU/mL (0.47-4.68)
[2023-05-29 05:36] LABS: x Labcorp Estim. Avg Glu (eAG) 120 mg/dL (.); x Labcorp Hemoglobin A1c 5.8 % (4.8-5.6)
== END ==
LOC: LAB 07:43
PROVIDERS: Family Provider Family Medicine; PCP Family Medicine; Referring Provider Physician Assistant; Visit Provider Physician Assistant
DX: E07.9 Disorder of thyroid, unspecified (principal); Z13.1 Encounter for screening for diabetes mellitus; D64.9 Anemia, unspecified
CPT/HCPCS: 36415; 80053; 83036; 84443; 85025

== ENCOUNTER → 2023-06-13 08:47 | Outpatient (CLI) | payer MEDICARE, OTHER, SELFPAY ==
--- NOTE | 2023-06-13 08:50 | DI.RAD.S_ITS ---
PROCEDURE: XR KNEE LT 3V INDICATIONS: left knee pain TECHNIQUE: 3 views of the knee were acquired. COMPARISON: None. FINDINGS: Bones: Mild tricompartmental DJD including mild joint space narrowing, subchondral sclerosis, and small osteophytes. No acute fracture or subluxation seen. Soft tissues: Minimal suprapatellar joint effusion IMPRESSION: Mild tricompartmental DJD Dictated by: Doe Sharpe M.D. on 06/13/2023 at 11:16 Approved by: Doe Sharpe M.D. on 06/13/2023 at 11:18
--- NOTE | 2023-06-13 08:50 | DI.US.S_ITS ---
PROCEDURE: US THYROID INDICATIONS: thyroid nodule follow up TECHNIQUE: Real-time scanning was performed of the thyroid gland, with image documentation. COMPARISON: [facility], US, US THYROID, 02/25/2021, 8:30. FINDINGS: Right: Thyroid lobe measures 4.5 x 1.8 x 1.7 cm, and is homogeneous in echotexture. Left: Thyroid lobe measures 4.2 x 1.7 x 1.5 cm, and is homogenous in echotexture. Isthmus: 0.4 cm thick. Nodule number: 1 Location: Right superior Size: 1.3 x 1.1 x 0.8 cm, previously 1.2 x 0.8 x 0.9 cm. Composition: Solid Echogenicity: Hypoechoic Shape: wider than tall. Margins: Smooth Echogenic foci: None Total points: 4 ACR TI-RADS category: 4 Nodule number: 2 Location: Right inferior Size: 0.9 x 0.9 x 0.6 cm, previously 0.7 x 0.6 x 0.8 cm. Composition: Solid Echogenicity: Hypoechoic Shape: wider than tall. Margins: Smooth Echogenic foci: Non Total points: 4 ACR TI-RADS category: 4 Nodule number: 3 Location: Left superior Size: 0.6 x 0.5 x 0.4 cm, previously 0.5 x 0.43.6 cm. Composition: Solid Echogenicity: Isoechoic Shape: wider than tall. Margins: Smooth Echogenic foci: None Total points: 3 ACR TI-RADS category: 3 Nodule number: 4 Location: Left inferior Size: 1.2 x 0.8 x 0.9 cm, previously 1.1 x 0.7 x 0.7 cm. Composition: Solid Echogenicity: Isoechoic Shape: wider than tall. Margins: Smooth Echogenic foci: Peripheral calcification Total points: 5 ACR TI-RADS category: 4 IMPRESSION: Stable thyroid nodules. ACR TI-RADS definitions and recommendations: TI-RADS 1 (benign): 0 points. FNA not needed. TI-RADS 2 (not suspicious): 2 points. FNA not needed. TI-RADS 3 (mildly suspicious): 3 points. * FNA if 2.5 cm or larger, follow up if 1.5 cm or larger (at 1, 3, and 5 years). TI-RADS 4 (moderately suspicious): 4-6 points. * FNA if 1.5 cm or larger, follow up if 1 cm or larger (at 1, 2, 3, and 5 years). TI-RADS 5 (highly suspicious): 7 points or more. * FNA if 1 cm or larger, follow up if 0.5 cm or larger (every year for 5 years). 1. Dictated by: Tristan Francisco M.D. on 06/13/2023 at 19:36 Approved by: Tristan Francisoc M.D. on 06/13/2023 at 19:40
== END ==
LOC: US 08:50
PROVIDERS: Family Provider Family Medicine; PCP Family Medicine; Referring Provider Family Medicine; Visit Provider Family Medicine
DX: M17.12 Unilateral primary osteoarthritis, left knee (principal); E04.2 Nontoxic multinodular goiter; M25.562 Pain in left knee; E78.5 Hyperlipidemia, unspecified; K22.70 Barrett's esophagus without dysplasia; K21.9 Gastro-esophageal reflux disease without esophagitis
CPT/HCPCS: 73562; 76536

== ENCOUNTER → 2024-02-09 08:42 | Outpatient (CLI) | payer MEDICARE, OTHER, SELFPAY ==
--- NOTE | 2024-02-09 08:43 | DI.MG.S_ITS ---
BILATERAL DIGITAL SCREENING MAMMOGRAM 3D/2D WITH CAD: 02/09/2024 CLINICAL: Routine screening. Family history of breast cancer. Comparison is made to exams dated: 01/18/2023 mammogram, 01/11/2022 mammogram, and 01/10/2021 mammogram - [facility]. The breasts are heterogeneously dense, which may obscure small masses (category c / 51-75% glandular tissue). Current study was also evaluated with a Computer Aided Detection (CAD) system. No significant masses, calcifications, or other findings are seen in either breast. There has been no significant interval change. IMPRESSION: NEGATIVE There is no mammographic evidence of malignancy. A 1 year screening mammogram is recommended. Based on the Tyrer Cuzick model (a risk assessment model) the patient's lifetime risk is 12.4% and her 10 year risk is 9.4%. According to the ACR, ACS, and NCCN guidelines, an annual breast MRI exam along with mammogram is recommended if the patient's lifetime risk is 20% or greater. This exam was interpreted at Station ID: [id number]. NOTE: For mammograms, a report in lay terms will be sent to the patient. Approximately 15% of breast malignancies will not be visualized mammographically. In the management of a palpable breast mass, a negative mammogram must not discourage biopsy of a clinically suspicious lesion. Electronically Signed By: Norris warren/britta:02/10/2024 07:02:16 letter sent: Normal Exam ACR BI-RADS Category 1: Negative
== END ==
LOC: MAMMO 08:42
PROVIDERS: Family Provider Family Medicine; PCP Family Medicine; Referring Provider Family Medicine; Visit Provider Family Medicine
DX: Z12.31 Encounter for screening mammogram for malignant neoplasm of breast (principal); Z80.3 Family history of malignant neoplasm of breast; R92.333 Mammographic heterogeneous density, bilateral breasts
CPT/HCPCS: 77063; 77067

== ENCOUNTER → 2024-05-25 08:09 | Outpatient (CLI) | payer MEDICARE, OTHER, SELFPAY ==
[2024-05-25 08:27] LABS: Add Manual Diff / Slide Review NO; Basophils Absolute Auto 100 /uL (0-100); Eosinophils Absolute Auto 200 /uL (0-450); Eosinophils Percent Auto 2.3 % (2-4); Hematocrit 41.9 % (36-46); Lymphocytes Absolute Auto 1600 /uL (1100-4500); Lymphocytes Percent Auto 23.9 % (25-40); Mean Corpuscular HGB Conc 33.4 % (30-36); Mean Corpuscular Hemoglobin 29.7 PG (26-34); Mean Corpuscular Volume 88.8 fL (80-100); Monocytes Absolute Auto 600 /uL (0-900); Monocytes Percent Auto 9.4 % (3-14); Neutrophils Absolute Auto 4300 /uL (1500-7000); Neutrophils Percent Auto 63.4 % (50-75); Platelet Count 379 X10^3/uL (150-400); Red Blood Cell Count 4.71 X10^6/uL (4.0-5.2); Red Cell Distribution Width 14.6 % (11.6-14.8); White Blood Cell Count 6.8 X10^3/uL (4.5-11.0)
[2024-05-25 08:37] LABS: Hemoglobin A1C% w Est Avg Glu 5.5 % (4.0-6.0)
[2024-05-25 08:49] LABS: Alanine Aminotransferase 17 IU/L (<35); Albumin 4.3 g/dL (3.5-5.0); Albumin Globulin Ratio 1.7 (1.0-2.8); Alkaline Phosphatase 77 U/L (38-126); Aspartate Aminotransferase 23 IU/L (14-36); BUN Creatinine Ratio 22.2 (6-22); Bilirubin Total 0.8 mg/dL (0.2-1.3); Blood Urea Nitrogen 22 mg/dL (7-17); Calcium 9.3 mg/dL (8.4-10.2); Carbon Dioxide 24 mmol/L (22-32); Chloride 108 mmol/L (98-107); Cholesterol 251 mg/dL (140-199); Estimated Glomerular Filt Rate > 60 mL/min (>60); Globulin 2.6 g/dL (1.7-4.1); Glucose 92 mg/dL (80-110); HDL Cholesterol 94 mg/dL (40-60); HEMOLYSIS < 15 (0-50); LDL Cholesterol Calculated 141 mg/dL (<100); Potassium 4.3 mmol/L (3.4-5.1); Sodium 139 mmol/L (137-145); Total Protein 6.9 g/dL (6.3-8.2); Triglycerides 81 mg/dL (35-150)
[2024-05-25 09:20] LABS: TSH w/ Reflex to FT4 0.93 uIU/mL (0.47-4.68)
== END ==
PROVIDERS: Family Provider Family Medicine; PCP Family Medicine; Referring Provider Family Medicine; Visit Provider Family Medicine
DX: E78.5 Hyperlipidemia, unspecified (principal); F41.8 Other specified anxiety disorders; D64.9 Anemia, unspecified
CPT/HCPCS: 36415; 80053; 80061; 83036; 84443; 85025

== ENCOUNTER → 2024-08-01 15:13 | Outpatient (CLI) | payer MEDICARE, OTHER, SELFPAY ==
--- NOTE | 2024-08-01 15:14 | DI.RAD.S_ITS ---
PROCEDURE: XR CHEST 2V INDICATIONS: sob x 1 mo TECHNIQUE: 2 views of the chest were acquired. COMPARISON: [facility], , CHEST 2 VIEW, 05/14/2015, 12:40. FINDINGS: Heart, mediastinum and pulmonary vascular: Heart is normal in size and configuration. Moderate hiatal hernia again noted. Remaining mediastinum is unremarkable. Pulmonary vascular is normal. Lungs: Small infiltrates developed right lower lobe Pleural spaces: Normal-no effusions or pneumothorax. Bones and soft tissues: Normal IMPRESSION: Small right lower lobe infiltrate likely pneumonia. Patient may be a risk for aspiration Moderate hiatal hernia stable Dictated by: Leland Cuello M.D. on 08/02/2024 at 11:39 Approved by: Leland Cuello M.D. on 08/02/2024 at 11:41
[2024-08-01 17:12] LABS: Add Manual Diff / Slide Review NO; Basophils Absolute Auto 100 /uL (0-100); Basophils Percent Auto 0.8 % (0-2); Eosinophils Absolute Auto 100 /uL (0-450); Eosinophils Percent Auto 1.2 % (2-4); Hematocrit 41.8 % (36-46); Hemoglobin 14.2 g/dL (12.0-16.0); Lymphocytes Absolute Auto 1800 /uL (1100-4500); Lymphocytes Percent Auto 24.4 % (25-40); Mean Corpuscular HGB Conc 33.8 % (30-36); Mean Corpuscular Hemoglobin 30.1 PG (26-34); Monocytes Absolute Auto 700 /uL (0-900); Monocytes Percent Auto 9.1 % (3-14); Neutrophils Absolute Auto 4800 /uL (1500-7000); Neutrophils Percent Auto 64.5 % (50-75); Platelet Count 386 X10^3/uL (150-400); Red Cell Distribution Width 14.5 % (11.6-14.8); White Blood Cell Count 7.5 X10^3/uL (4.5-11.0)
[2024-08-01 17:29] LABS: Alanine Aminotransferase 17 IU/L (<35); Albumin 4.4 g/dL (3.5-5.0); Albumin Globulin Ratio 1.6 (1.0-2.8); Alkaline Phosphatase 74 U/L (38-126); Aspartate Aminotransferase 25 IU/L (14-36); BUN Creatinine Ratio 20.7 (6-22); Bilirubin Total 0.7 mg/dL (0.2-1.3); Blood Urea Nitrogen 19 mg/dL (7-17); Calcium 9.3 mg/dL (8.4-10.2); Carbon Dioxide 25 mmol/L (22-32); Chloride 102 mmol/L (98-107); Estimated Glomerular Filt Rate > 60 mL/min (>60); Globulin 2.8 g/dL (1.7-4.1); Glucose 85 mg/dL (80-110); HEMOLYSIS < 15 (0-50); Potassium 3.8 mmol/L (3.4-5.1); Sodium 136 mmol/L (137-145); Total Protein 7.2 g/dL (6.3-8.2)
[2024-08-01 17:38] LABS: NT-proBNP (BNP-Adult 18+) 54 pg/mL (<125)
[2024-08-01 17:42] LABS: Free T3, Triiodothyronine Free 3.12 pg/mL (2.77-5.27); Free T4, Direct Thyroxine 1.54 ng/dL (0.78-2.19)
[2024-08-01 17:56] LABS: Thyroid Stimulating Hormone < 0.015 uIU/mL (0.47-4.68)
== END ==
PROVIDERS: Family Provider Family Medicine; PCP Family Medicine; Referring Provider Physician Assistant; Visit Provider Physician Assistant
DX: K44.9 Diaphragmatic hernia without obstruction or gangrene (principal); R00.2 Palpitations; R06.02 Shortness of breath; R91.8 Other nonspecific abnormal finding of lung field
CPT/HCPCS: 36415; 71046; 80053; 83880; 84439; 84443; 84481; 85025

== ENCOUNTER → 2024-08-13 10:41 | Outpatient (CLI) | payer MEDICARE, OTHER, SELFPAY | PROVIDERS: Family Provider Family Medicine; PCP Family Medicine; Referring Provider Physician Assistant; Visit Provider Physician Assistant | DX: R00.2 Palpitations (principal) | CPT/HCPCS: 93242; 93244 ==

== ENCOUNTER → 2024-08-17 14:21 | Outpatient (CLI) | payer MEDICARE, OTHER, SELFPAY ==
--- NOTE | 2024-08-17 14:24 | DI.RAD.S_ITS ---
PROCEDURE: XR KNEE RT 3V INDICATIONS: rt knee injury and pain TECHNIQUE: 3 views of the knee were acquired. COMPARISON: [facility], CR, XR KNEE LT 3V, 06/13/2023, 9:16. FINDINGS: Bones: No fractures or dislocations. [id number] tricompartmental osteoarthritis is seen more notably in medial femoral tibial compartment. No significant patellar subluxation. No suspicious bony lesions. Soft tissues: No joint effusion. No suspicious soft tissue calcifications. IMPRESSION: No acute right knee fracture or dislocation. Usym-ev-qfseujsa tricompartmental osteoarthritis. No significant joint effusion. Dictated by: Monty Ramos M.D. on 08/17/2024 at 18:39 Approved by: Monty Ramos M.D. on 08/17/2024 at 18:41
[2024-08-17 16:04] LABS: TSH w/ Reflex to FT4 1.03 uIU/mL (0.47-4.68)
== END ==
PROVIDERS: Physician Assistant; Family Provider Family Medicine; PCP Family Medicine; Referring Provider Nurse Practitioner Family; Visit Provider Nurse Practitioner Family
DX: M25.561 Pain in right knee (principal); S89.91XA Unspecified injury of right lower leg, initial encounter; M17.11 Unilateral primary osteoarthritis, right knee; E04.2 Nontoxic multinodular goiter; X58.XXXA Exposure to other specified factors, initial encounter
CPT/HCPCS: 36415; 73562; 84443

== ENCOUNTER → 2024-08-23 07:01 | Outpatient (CLI) | payer MEDICARE, OTHER, SELFPAY ==
--- NOTE | 2024-08-23 07:03 | DI.ECHO.S_ITS ---
[facility] : : [address] : : [place] : : [id number] : : Phone: [phone] Echocardiogram Report + + :Name: LOIDA ALONZO Study Date: 08/23/2024 Height: 67 in : :[facility] ReadingLocation: Weight: 191 lb : : Gender: Female BSA: 2.0 m2 : :: 1950 Age: 74 yrs BP: 118/80 mmHg: :Reason For Study: Palpitations : :Ordering Physician: SARA, : :SHARON Performed By: Sunny Simons : :Referring: SHARON RUIZ : + + Interpretation Summary 1. The left ventricular contractility is normal. Estimate ejection fraction is greater than 60% with no segmental wall motion abnormalities. No LVH. No diastolic dysfunction. 2. The right ventricular contractility is normal. 3. All cardiac chambers are of normal size. 4. Trace to mild aortic insufficiency. 5. No obvious intracardiac shunts. 6. No obvious intracardiac masses or thrombi. 7. No hemodynamically significant pericardial effusion. 8. Low right-sided filling pressures. Conclusion: Normal biventricular function with no significant valvular abnormalities. Procedure: A two-dimensional transthoracic echocardiogram with color flow and Doppler was performed. The study quality was technically adequate. There is no prior echocardiogram noted for this patient. The patient was in normal sinus rhythm during the exam. The patient had occasional PVCs during the exam. Left Ventricle: The left ventricle appears normal in size, wall thickness, and systolic function without any focal wall motion abnormalities. Left ventricular wall thickness is mildly increased. Left ventricular systolic function is normal. The ejection fraction is estimated to be 60-65%. There are no focal wall motion abnormalities. Right Ventricle: The right ventricle is normal in size and function. Atria: Both atria are normal in size. There is no Doppler evidence for an interatrial shunt. Mitral Valve: There is mild mitral annular calcification. The mitral valve leaflets appear to open well. There is no mitral valve stenosis. There is trace mitral regurgitation. Aortic Valve: The aortic valve is trileaflet. The aortic valve opens well. There is no aortic valve stenosis. There is mild aortic regurgitation. Tricuspid Valve: The tricuspid valve leaflets are thin and pliable. There is mild tricuspid regurgitation. The right ventricular systolic pressure is estimated to be at least 26 mmHg based on an estimated right atrial pressure of 3 mm Hg. Pulmonic Valve: The pulmonic valve is not well seen, but is grossly normal. There is a trace or physiologic amount of pulmonic regurgitation. Great Vessels: The aortic root is normal size. The ascending aorta is normal in size. The aortic arch could not be visualized. The IVC is of normal diameter and collapses greater than 50% with a sniff. This suggests a low right atrial pressure of 3 mm Hg. Pericardium/ Pleura There is no pericardial effusion. MMode/2D Measurements & Calculations LVIDd: 4.2 cm LVOT diam: 2.0 cm LVIDs: 2.8 cm Ao root diam: 3.2 cm FS: 33.8 % asc Aorta Diam: 3.5 cm EPSS: 0.51 cm IVSd: 1.1 cm LVPWd: 1.1 cm LV vogt. diameter/BSA (cm/m^2): 2.1 LV sys. diameter/BSA (cm/m^2): 1.4 LA A2 area: 18.1 cm2 RA long axis: 4.3 cm LA A4 area: 18.8 cm2 RA area: 10.2 cm2 LA length (vol): 5.6 cm RA vol: 20.6 ml LA vol: 51.2 ml RA : 10.4 ml/m2 LA vol index: 25.8 ml/m2 IVC diam: 1.7 cm RVD1 (basal): 3.0 cm RVD2 (mid): 2.7 cm TAPSE: 1.7 cm Doppler Measurements & Calculations Ao V2 max: 130.2 cm/sec LVOT Max Omkar: 94.3 cm/sec Ao V2 mean: 83.6 cm/sec LV V1 max P.6 mmHg Ao max P.8 mmHg LV V1 VTI: 19.2 cm Ao mean P.3 mmHg MIRZA(I,D): 2.5 cm2 Ao V2 VTI: 23.2 cm MIRZA(V,D): 2.2 cm2 sev ratio: 0.83 MIRZA indexed to BSA (cm^2/m^2): 1.3 AI P1/2t: 590.9 msec AI dec slope: 171.5 cm/sec2 MV E max omkar: 76.7 cm/sec TR max omkar: 228.2 cm/sec MV A max omkar: 107.8 cm/sec TR max P.8 mmHg MV E/A: 0.71 PA V2 max: 109.6 cm/sec Med Peak E' Omkar: 8.0 cm/sec PA V2 mean: 68.8 cm/sec E/E' med: 9.6 PA mean P.3 mmHg Lat Peak E' Omkar: 9.7 cm/sec PA pr(Accel): 58.4 mmHg E/E' lat: 7.9 E/e' average: 8.8 MV dec time: 0.22 sec SV(LVOT): 58.0 ml Reading Physician:LEONCIO
== END ==
LOC: ECHO 07:02
PROVIDERS: Family Provider Family Medicine; PCP Family Medicine; Referring Provider Physician Assistant; Visit Provider Physician Assistant
DX: I08.2 Rheumatic disorders of both aortic and tricuspid valves (principal); E04.2 Nontoxic multinodular goiter
CPT/HCPCS: 93306

== ENCOUNTER → 2024-08-23 07:03 | Outpatient (CLI) | payer MEDICARE, OTHER, SELFPAY ==
--- NOTE | 2024-08-23 07:05 | DI.US.S_ITS ---
PROCEDURE: US THYROID INDICATIONS: /fu nodules TECHNIQUE: Real-time scanning was performed of the thyroid gland, with image documentation. COMPARISON: [facility], US, US THYROID, 06/13/2023, 9:03. FINDINGS: Thyroid: Right lobe measures 4.3 x 2.0 x 1.8 cm. Left lobe measures 4.8 x 1.7 x 1.5 cm. Isthmus is 0.4 cm thick. Echotexture is homogeneous. Nodule number: 1 Location: Right superior pole Size: 1.4 x 1.2 x 0.9 cm, previously 1.3 x 1.1 x 0.8 cm. Composition: Predominantly solid Echogenicity: Heterogeneous, predominantly hypoechoic Shape: wider than tall. Margins: Smooth but lobulated Echogenic foci: Indistinct, short linear, nonshadowing Total points: Nine ACR TI-RADS category: Five Nodule number: 2 (previously nodule 4.) Previously biopsied. Location: Left inferior pole Size: 1.1 x 0.7 x 0.9 cm, previously 1.2 x 0.8 x 0.9 cm. Composition: Solid Echogenicity: Hypoechoic Shape: wider than tall. Margins: Smooth Echogenic foci: Diffuse peripheral calcification, near complete. Total points: Six ACR TI-RADS category: Four There are other cystic foci in each thyroid lobe. A subcentimeter right lower pole thyroid nodule is grossly stable and does not meet size criteria for follow-up. No new suspicious nodules. IMPRESSION: Longstanding thyroid nodules. Right upper pole nodule has minimally changed in size over five years, and mildly change in appearance, becoming more lobulated and less cystic. While this is most likely a benign nodule, this nodule does meet TI-RADS criteria for FNA if clinically warranted. ACR TI-RADS definitions and recommendations: TI-RADS 1 (benign): 0 points. FNA not needed. TI-RADS 2 (not suspicious): 2 points. FNA not needed. TI-RADS 3: 3 points. * FNA if 2.5 cm or larger, follow up if 1.5 cm or larger (at 1, 3, and 5 years). TI-RADS 4: 4-6 points. * FNA if 1.5 cm or larger, follow up if 1 cm or larger (at 1, 2, 3, and 5 years). TI-RADS 5: 7 points or more. * FNA if 1 cm or larger, follow up if 0.5 cm or larger (every year for 5 years). Dictated by: Dia Mercado M.D. on 08/24/2024 at 9:46 Approved by: Dia Mercado M.D. on 08/24/2024 at 10:04
== END ==
LOC: US 07:04
PROVIDERS: Family Provider Family Medicine; PCP Family Medicine; Referring Provider Physician Assistant; Visit Provider Physician Assistant
DX: I08.2 Rheumatic disorders of both aortic and tricuspid valves (principal); E04.2 Nontoxic multinodular goiter; R00.2 Palpitations
CPT/HCPCS: 76536; 93306

== ENCOUNTER → 2024-08-30 15:10 | Outpatient (CLI) | payer MEDICARE, OTHER, SELFPAY ==
--- NOTE | 2024-08-30 15:12 | DI.RAD.S_ITS ---
PROCEDURE: XR CHEST 2V INDICATIONS: f/u TECHNIQUE: 2 views of the chest were acquired. COMPARISON: [facility], MARIEL, XR CHEST 2V, 08/01/2024, 15:10. [facility], MARIEL, CHEST 2 VIEW, 05/14/2015, 12:40. FINDINGS: Surgical changes and devices: None. Lungs and pleura: Lungs are improved with resolution of a right lower lobe pneumonia.. No pleural effusions or pneumothorax. Mediastinum: Mediastinal contours are normal. Heart size is normal. Bones and chest wall: No suspicious bony abnormalities. Soft tissues appear unremarkable. IMPRESSION: No acute cardiopulmonary abnormality is seen. Resolution of mild right lower lobe pneumonia. Dictated by: Samuel Barker M.D. on 08/31/2024 at 13:05 Approved by: Samuel Barker M.D. on 08/31/2024 at 13:06
== END ==
PROVIDERS: Family Provider Family Medicine; PCP Family Medicine; Referring Provider Physician Assistant; Visit Provider Physician Assistant
DX: R06.02 Shortness of breath (principal)
CPT/HCPCS: 71046